=== PATIENT | female | born 1980 | race Caucasian/White ===

== ENCOUNTER 2021-06-11 10:55 | Inpatient (IN) | payer OTHER, SELFPAY ==
[2021-06-11] VITALS (23 sets, daily range): BP systolic 130–160; BP diastolic 77–114; PULSE 79–144; RESP 18–25; TEMP 36.7–37.4; O2SAT 97–100; BMI 25.9
--- NOTE | 2021-06-11 11:32 | DI.RAD.S_ITS ---
PROCEDURE: XR CHEST 1V INDICATIONS: suspected sepsis TECHNIQUE: One view of the chest was acquired. COMPARISON: None. FINDINGS: Surgical changes and devices: None. Lungs and pleura: Lungs are clear. No pleural effusions or pneumothorax. Mediastinum: Mediastinal contours appear normal. Heart size is normal. Bones and chest wall: No suspicious bony lesions. Mild dextroconvex scoliotic curvature is seen. Overlying soft tissues appear unremarkable. IMPRESSION: Clear lungs, without infiltrates. Dictated by: Adam Oh M.D. on 06/11/2021 at 10:58 Approved by: Adam Oh M.D. on 06/11/2021 at 10:59
[2021-06-11] MEDS: SODIUM CHLORIDE 0.9% 1,000 ML 1000 ML IV ×3 (11:40→19:25)
[2021-06-11] MEDS: ONDANSETRON 4 MG/2 ML INJ IV (11:40)
[2021-06-11 11:41] LABS: Add Manual Diff / Slide Review NO; Basophils Absolute Auto 0 /uL (0-100); Basophils Percent Auto 0.6 % (0-2); Eosinophils Absolute Auto 0 /uL (0-450); Eosinophils Percent Auto 0.1 % (2-4); Hemoglobin 12.4 g/dL (12.0-16.0); Lymphocytes Absolute Auto 200 /uL (1100-4500); Lymphocytes Percent Auto 3.1 % (25-40); Mean Corpuscular HGB Conc 34.5 % (30-36); Mean Corpuscular Hemoglobin 38.6 PG (26-34); Mean Corpuscular Volume 111.8 fL (80-100); Monocytes Absolute Auto 600 /uL (0-900); Monocytes Percent Auto 7.9 % (3-14); Neutrophils Absolute Auto 7000 /uL (1500-7000); Neutrophils Percent Auto 88.3 % (50-75); Platelet Count 124 X10^3/uL (150-400); Red Blood Cell Count 3.22 X10^6/uL (4.0-5.2); Red Cell Distribution Width 17.7 % (11.6-14.8); White Blood Cell Count 7.9 X10^3/uL (4.5-11.0)
[2021-06-11 11:46] LABS: Lactate (Lactic Acid) 2.8 mmol/L (0.7-2.1)
[2021-06-11 11:47] LABS: Alanine Aminotransferase 39 IU/L (<35); Albumin 4.7 g/dL (3.5-5.0); Albumin Globulin Ratio 1.2 (1.0-2.8); Alkaline Phosphatase 98 U/L (38-126); Aspartate Aminotransferase 220 IU/L (14-36); BUN Creatinine Ratio 11.8 (6-22); Blood Urea Nitrogen 8 mg/dL (7-17); Calcium 8.6 mg/dL (8.4-10.2); Carbon Dioxide 24 mmol/L (22-32); Chloride 95 mmol/L (98-107); Estimated Glomerular Filt Rate > 60.0 mL/min (>60); Globulin 3.9 g/dL (1.7-4.1); Glucose 164 mg/dL (70-100); HEMOLYSIS < 15 (0-50); Lipase 97 U/L (23-300); Potassium 3.1 mmol/L (3.4-5.1); Sodium 134 mmol/L (137-145); Total Protein 8.6 g/dL (6.3-8.2)
[2021-06-11 11:54] LABS: Anisocytosis 1+; Macrocytosis 2+
--- NOTE | 2021-06-11 11:57 | ED_ITS ---
HPI - Female Genitourinary General Chief complaint: Urogenital-Female Stated complaint: Possible kidney infection/sepsis- sent by [facility] Time Seen by Provider: 06/11/21 11:33 Source: patient Mode of arrival: Ambulatory History of Present Illness HPI Narrative: Patient is a 40-year-old female who has a history of alcohol abuse stating that she drinks about 4-5 drinks daily. Last drink was about 24 hours ago case she has not felt well. She says that she has had UTI symptoms painful frequent urination for about 2 weeks she has been using cranberry juice has not gone away. She was seen evaluated at would be urgent care for UTI but sent here for possible sepsis. She has had ongoing left flank pain. She describes as a dull ache it is not radiating. She has felt nauseous she has had fever body aches and chills for the last 1-2 days. He says she has an appointment with the liver doctor tomorrow it would be for gallstones. She denies any right upper quadrant pain. Review of Systems Review of Systems Narrative: GENERAL: + fever body aches HEENT: Denies sinus pain, ear pain, sore throat, difficulty swallowing, neck pain RESPIRATORY: Denies dyspnea, cough, wheezing, hemoptysis, sputum. CARDIOVASCULAR: Denies chest pain, palpitations, orthopnea, edema GASTROINTESTINAL: Denies nausea, vomiting, abdominal pain, diarrhea, co nstipation, melena. : + left flank pain, see hpi MUSCULOSKELETAL: Denies weakness, joint pain, or bony pain SKIN: No rash, no erythema, no pruritus NEUROLOGIC: Denies weakness, dizziness, headache, numbness, change in speech, confusion PSYCHIATRIC: No concerning psychosocial issues. 12 point review of systems is negative except for those stated above and HPI Patient History alcohol intake frequency: 3 or more drinks per day Substance Use Type: does not use Exam Initial Vital Signs Initial Vital Signs: Vital Signs Pulse Rate 117 H 06/11/21 11:06 Respiratory Rate 22 06/11/21 11:06 Blood Pressure 160/114 H 06/11/21 11:06 Pulse Oximetry 100 06/11/21 11:06 GENERAL: 40-year-old female appears to not feel well slightly clammy HEENT: Head atraumatic,EOMI, pupils reactive, face symmetric, moist mucous membranes CARDIOVASCULAR: Tachycardic regular RESPIRATORY: Breath sounds equal bilaterally, no wheezes rales or rhonchi. ABDOMEN: Soft, nontender. Normoactive bowel sounds all 4 quadrants. No guarding or rebound. No right upper quadrant : Mild left CVA tenderness EXTREMITIES: Normal range of motion, no clubbing or edema. Neurovascularly intact NEUROLOGICAL: Alert and oriented x4.Normal gait and speech. SKIN: Warm, dry, no laceration, no petechiae, no rashes or lesions. Course Orders Ordered: ED Orders 06/11/21 11:15 Complete Blood Count AUTO DIFF Stat Comprehensive Metabolic Panel Stat Lactate (Lactic Acid) Stat Lipase Stat Procalcitonin Stat 06/11/21 11:32 XR chest 1V Stat EKG-12 Lead Stat RT Consult Eval and Treat NOW 06/11/21 12:09 US abdomen limited Stat 06/11/21 12:43 Blood Culture Stat 06/11/21 12:53 Urinalysis and Microscopic Stat Urine Culture Stat 06/11/21 14:11 MRCP [MR abdomen wo con] Stat 06/11/21 17:27 CT kidney ureter bladder (KUB) Stat 06/11/21 19:12 COVID19 -Nasal swab/Pre-Proc Stat Sodium Chloride (Normal Saline 0.9%) 2,258.88 mls @ 752.96 mls/hr 30 ml/kg infuse over 3 hr (2258.88 ml) IV NOW ONE Stop: 06/11/21 20:26 Sodium Chloride (Normal Saline 0.9%) 1,000 mls @ 1,000 mls/hr IV BOLUS ONE Stop: 06/11/21 19:39 Discontinued Medications Acetaminophen (Acetaminophen 325 Mg Tablet) 650 mg PO NOW ONE Stop: 06/11/21 17:17 Last Admin: 06/11/21 17:49 Dose: 650 mg Documented by: OCTAVIO Sodium Chloride (Normal Saline 0.9%) 1,000 mls @ 1,000 mls/hr IV BOLUS ONE Stop: 06/11/21 12:30 Last Infusion: 06/11/21 13:34 Dose: 0 mls/hr Documented by: Admin: 06/11/21 11:40 Dose: 1,000 mls/hr Documented by: ADITI Ceftriaxone Sodium 1,000 mg/ (Sodium Chloride) 100 mls @ 200 mls/hr IV NOW ONE Stop: 06/11/21 12:10 Last Infusion: 06/11/21 13:34 Dose: 0 mls/hr Documented by: Admin: 06/11/21 12:36 Dose: 200 mls/hr Documented by: OCTAVIO Sodium Chloride (Normal Saline 0.9%) 1,000 mls @ 1,000 mls/hr IV BOLUS ONE Stop: 06/11/21 13:50 Last Admin: 06/11/21 17:55 Dose: 1,000 mls/hr Documented by: OCTAVIO Ketorolac Tromethamine (Ketorolac 30 Mg/Ml Vial) 15 mg IV NOW ONE Stop: 06/11/21 12:10 Last Admin: 06/11/21 12:38 Dose: 15 mg Documented by: OCTAVIO Lorazepam (Lorazepam 2 Mg/Ml Inj) 1 mg IV NOW ONE Stop: 06/11/21 12:10 Last Admin: 06/11/21 12:38 Dose: 1 mg Documented by: OCTAVIO Lorazepam (Lorazepam 2 Mg/Ml Inj) 2 mg IV NOW ONE Stop: 06/11/21 14:16 Last Admin: 06/11/21 14:44 Dose: 2 mg Documented by: OCTAVIO Ondansetron HCl (Ondansetron 4 Mg/2 Ml Inj) 4 mg IV NOW ONE Stop: 06/11/21 11:32 Last Admin: 06/11/21 11:40 Dose: 4 mg Documented by: ADITI Phenobarbital (Phenobarbital 65 Mg/Ml Vial) 130 mg IV NOW ONE Stop: 06/11/21 17:42 Last Admin: 06/11/21 17:48 Dose: 130 mg Documented by: OCTAVIO Vital Signs Vital signs: Vital Signs - 8 hr 06/11/21 11:30 06/11/21 11:42 06/11/21 11:43 Pulse Rate 106 H 109 H Respiratory Rate 18 20 Blood Pressure 145/97 H Pulse Oximetry 99 99 06/11/21 12:04 06/11/21 12:22 06/11/21 12:30 Pulse Rate 108 H 106 H 114 H Respiratory Rate 18 18 Blood Pressure 151/108 H 144/101 H Pulse Oximetry 99 99 06/11/21 13:00 06/11/21 13:30 06/11/21 14:00 Pulse Rate 101 H 101 H 104 H Respiratory Rate Blood Pressure 137/96 H 135/97 H Pulse Oximetry 97 99 100 06/11/21 14:29 06/11/21 14:30 06/11/21 14:31 Pulse Rate 108 H 105 H 103 H Respiratory Rate Blood Pressure 140/96 H 135/99 H Pulse Oximetry 100 100 100 06/11/21 17:12 06/11/21 17:30 06/11/21 18:02 Pulse Rate 144 H 127 H 137 H Respiratory Rate 25 H Blood Pressure Pulse Oximetry 100 99 98 06/11/21 18:30 06/11/21 19:00 Pulse Rate 120 H 121 H Respiratory Rate 22 25 H Blood Pressure 130/90 Pulse Oximetry 99 98 MDM - Female Genitourinary Lab Data Result diagrams: 06/11/21 11:15 06/11/21 11:15 Labs: Lab Results 06/11/21 06/11/21 06/11/21 Range/Units 11:15 11:15 11:15 WBC 7.9 (4.5-11.0) X10^3/uL RBC 3.22 L (4.0-5.2) X10^6/uL Hgb 12.4 (12.0-16.0) g/dL Hct 36.0 (36-46) % MCV 111.8 H (80-100) fL MCH 38.6 H (26-34) PG MCHC 34.5 (30-36) % RDW 17.7 H (11.6-14.8) % Plt Count 124 L (150-400) X10^3/uL Neut % (Auto) 88.3 H (50-75) % Lymph % (Auto) 3.1 L (25-40) % [facility] % (Auto) 7.9 (3-14) % Eos % (Auto) 0.1 L (2-4) % Baso % (Auto) 0.6 (0-2) % Neut # (Auto) 7000 (2440-7419) /uL Lymph # (Auto) 200 L (1181-8296) /uL [facility] # (Auto) 600 (0-900) /uL Eos # (Auto) 0 (0-450) /uL Baso # (Auto) 0 (0-100) /uL RBC Morphology Not Reportable Anisocytosis 1+ H Macrocytosis 2+ H Sodium 134 L (137-145) mmol/L Potassium 3.1 L (3.4-5.1) mmol/L Chloride 95 L (98-107) mmol/L Carbon Dioxide 24 (22-32) mmol/L BUN 8 (7-17) mg/dL Creatinine 0.68 (0.52-1.04) mg/dL Estimated GFR > 60.0 (>60) mL/min BUN/Creatinine Ratio 11.8 (6-22) Glucose 164 H (70-100) mg/dL Lactate 2.8 H (0.7-2.1) mmol/L Calcium 8.6 (8.4-10.2) mg/dL Total Bilirubin 2.0 H (0.2-1.3) mg/dL AST 220 H (14-36) IU/L ALT 39 H (<35) IU/L Alkaline Phosphatase 98 (38-126) U/L Total Protein 8.6 H (6.3-8.2) g/dL Albumin 4.7 (3.5-5.0) g/dL Globulin 3.9 (1.7-4.1) g/dL Albumin/Globulin Ratio 1.2 (1.0-2.8) Lipase 97 (23-300) U/L Procalcitonin 9.00 H (<0.5) ng/mL Urine Color Urine Appearance Urine pH (4.5-8.0) Ur Specific [place] (1.000-1.035) Urine Protein (Negative) Urine Glucose (UA) (Negative) g/dL Urine Ketones (NEGATIVE) Urine Occult Blood (Negative) Urine Nitrate (Negative) Urine Bilirubin (NEGATIVE) Urine Urobilinogen (0.2) E.U./dL Ur Leukocyte Esterase (NEGATIVE) Urine RBC (0-5/HPF) Urine WBC (0-5/HPF) Ur Squamous Epith Cells (0-5/HPF) Urine Bacteria (None) Ur Culture Indicated? 06/11/21 06/11/21 Range/Units 12:53 13:47 WBC (4.5-11.0) X10^3/uL RBC (4.0-5.2) X10^6/uL Hgb (12.0-16.0) g/dL Hct (36-46) % MCV (80-100) fL MCH (26-34) PG MCHC (30-36) % RDW (11.6-14.8) % Plt Count (150-400) X10^3/uL Neut % (Auto) (50-75) % Lymph % (Auto) (25-40) % [facility] % (Auto) (3-14) % Eos % (Auto) (2-4) % Baso % (Auto) (0-2) % Neut # (Auto) (9023-2647) /uL Lymph # (Auto) (8770-0491) /uL [facility] # (Auto) (0-900) /uL Eos # (Auto) (0-450) /uL Baso # (Auto) (0-100) /uL RBC Morphology Anisocytosis Macrocytosis Sodium (137-145) mmol/L Potassium (3.4-5.1) mmol/L Chloride (98-107) mmol/L Carbon Dioxide (22-32) mmol/L BUN (7-17) mg/dL Creatinine (0.52-1.04) mg/dL Estimated GFR (>60) mL/min BUN/Creatinine Ratio (6-22) Glucose (70-100) mg/dL Lactate 1.3 (0.7-2.1) mmol/L Calcium (8.4-10.2) mg/dL Total Bilirubin (0.2-1.3) mg/dL AST (14-36) IU/L ALT (<35) IU/L Alkaline Phosphatase (38-126) U/L Total Protein (6.3-8.2) g/dL Albumin (3.5-5.0) g/dL Globulin (1.7-4.1) g/dL Albumin/Globulin Ratio (1.0-2.8) Lipase (23-300) U/L Procalcitonin (<0.5) ng/mL Urine Color Yellow Urine Appearance Sl cloudy Urine pH 6.5 (4.5-8.0) Ur Specific [place] <=1.005 (1.000-1.035) Urine Protein Trace H (Negative) Urine Glucose (UA) Negative (Negative) g/dL Urine Ketones Trace H (NEGATIVE) Urine Occult Blood 2+ H (Negative) Urine Nitrate Negative (Negative) Urine Bilirubin Negative (NEGATIVE) Urine Urobilinogen 0.2 (0.2) E.U./dL Ur Leukocyte Esterase 3+ H (NEGATIVE) Urine RBC 1-5/hpf (0-5/HPF) Urine WBC 10-30/hpf H (0-5/HPF) Ur Squamous Epith Cells 0-1 /hpf (0-5/HPF) Urine Bacteria Many (>30) H (None) Ur Culture Indicated? Specimen cultured Point of Care Testing Test Results Negative Urine Dip Bedside Urine Glucose Negative Bedside Urine Bilirubin - Negative Bedside Urine Ketone +/- 5 Urine Specific [place] 1.010 Bedside Urine Occult Blood +/- Bedside Urine pH 6 Bedside Urine Protein + 30 Bedside Urine Urobilinogen - Negative Bedside Urine Nitrite - Negative Bedside Urine Leukocytes +++ [address] scan - abdomen/pelvis: Radiologist's Impression: PROCEDURE:? CT KIDNEY URETER BLADDER (KUB) ? INDICATIONS:? left flank pain ? TECHNIQUE:? Axial sections were acquired from the lung bases to the pubic symphysis.? Coronal and sagittal reformats were performed.? For radiation dose reduction, the following was used: ?automated exposure control, adjustment of mA and/or kV according to patient size.? ? COMPARISON:? [facility], MR, MR ABDOMEN WO CON, 06/11/2021, 15:23. ? FINDINGS:? Image quality:? Excellent.? ? Lung bases:? Unremarkable.? ? Heart:? No significant findings. ? URINARY: Kidneys and ureters:? Left perinephric fat stranding is seen, as demonstrated on MRI from earlier the same day.? No left renal or ureteral calculus is seen.? Phleboliths are noted in the pelvis posterior medial to the ureter.? There is diffuse left periureteral fat stranding.? No significant hydronephrosis is seen.? Stable left renal cyst.? R ight kidney is normal in size without perinephric fat stranding or hydronephrosis. ? Bladder:? Diffuse bladder wall thickening is seen.? No bladder calculus. ? ABDOMEN: Liver:? The liver is diffusely hypoattenuating, consistent with fatty infiltration.? A 1.2 cm fat density lesion is seen in the posterior right hepatic lobe corresponding to the abnormality seen on MRI. Gallbladder:? Unremarkable. Biliary ducts:? Unremarkable.? ? Pancreas:? Unremarkable.? ? Spleen:? Unremarkable.? ? Adrenal Glands:? Unremarkable.? ? ? Stomach and Bowel:? Stomach, small bowel loops, and colon are unremarkable.? Peritoneum:? No abnormal intraperitoneal fluid.? No free air.? ? Ventral Wall: ? No hernia.? Abdominal Nodes:? No enlarged retroperitoneal or mesenteric lymph nodes.? Vessels:? Aorta and inferior vena cava are normal in size.? ? PELVIS: Pelvic Organs:? Uterus is normal in size.? The ovaries are symmetric. Pelvic Nodes: Unremarkable. Miscellaneous: No inguinal hernias are seen. ? ? ? Bones:? Mild degenerative changes are seen in the spine, most prominent at the T12-L1 level. ? IMPRESSION:? 1. Left perinephric and periureteral fat stranding and mild diffuse bladder wall thickening are suspicious for cystitis and pyelonephritis.? Less likely, findings could be secondary to a recently passed calculus.? No obstructing stone is seen.? The right kidney appears normal.? Recommend correlation with urinalysis. 2. Diffuse hepatic steatosis. 3. Small indeterminate lesion in the posterior right liver.? Again consider follow-up contrast-enhanced liver protocol MRI for further characterization on a n onemergent basis. ? ? ? Dictated by: Arslan Linton M.D. on 06/11/2021 at 18:09 ? ? Chest x-ray: Radiologist's Impression: PROCEDURE:? XR CHEST 1V ? INDICATIONS:? suspected sepsis ? TECHNIQUE:? One view of the chest was acquired.? ? COMPARISON:? None. ? FINDINGS:? ? Surgical changes and devices:? None.? ? Lungs and pleura:? Lungs are clear.? No pleural effusions or pneumothorax.? ? Mediastinum:? Mediastinal contours appear normal.? Heart size is normal.? ? Bones and chest wall:? No suspicious bony lesions.? Mild dextroconvex scoliotic curvature is seen. ? Overlying soft tissues appear unremarkable.? IMPRESSION:? Clear lungs, without infiltrates. ? ? Dictated by: Adam Oh M.D. on 06/11/2021 at 10:58 ? ? Approved by: Adam Oh M.D. on 06/11/2021 at 10:59 ? US - abdomen: Radiologist's Impression: PROCEDURE:? US ABDOMEN LIMITED ? INDICATIONS:? ELEVATED BILI AND LIVER ENZYMES ? TECHNIQUE:? Real-time scanning was performed of the abdominal and retroperitoneal organs, with image documentation.? ? COMPARISON:? None. ? FINDINGS:? ? Liver:? There is mild hepatomegaly.? Increased liver parenchymal echotexture is seen suggestive of hepatic steatosis.? No discrete hepatic lesion is noted. ? Gallbladder:? Possible small stones/sludge material in dependent portion of gallbladder lumen are seen.? No gallbladder wall thickening or pericholecystic fluid.? No sonographic Spann's sign ? Biliary ducts:? Intrahepatic bile ducts are non-dilated.? Extrahepatic bile duct caliber measures 5.1 mm.? Normal is 6-7 mm or less in diameter, or 10 mm or less post-cholecystectomy.? ? Pancreas:? Pancreas is not visualized due to overlying bowel gas and poor penetration through the liver.? ? Miscellaneous:? No free abdominal fluid.? ? ? IMPRESSION:? 1. Possible tiny stones/sludge material in gallbladder lumen.? No sonographic evidence of acute cholecystitis. 2. No biliary ductal dilatation. 3.? Hepatic steatosis and mild splenomegaly, no discrete hepatic lesion. ? ? ? Dictated by: Titus Lynch M.D. on 06/11/2021 at 12:54 ? ? Approved by: Titus Lynch M.D. on 06/11/2021 at 12:56 ? MRCP: Radiologist's Impression: PROCEDURE:? MR ABDOMEN WO CON ? INDICATIONS:? elevated bili with gallstones ? TECHNIQUE:? Coronal HASTE through the abdomen, axial 2-D FLASH in- and [id number], and breath-hold T2 FSE with fat saturation through the biliary system and pancreas.? Oblique coronal and axial thin-slice HASTE, radial thick-slab HASTE centered on the extrahepatic bile ducts.? ? ? Intravenous secretin:? Not requested.? ? COMPARISON:? [facility], US ABDOMEN LIMITED, 06/11/2021, 12:19. ? FINDINGS:? Image quality:? Excellent.? ? Pancreas and biliary system:? Intra- and extra-hepatic biliary ducts are non dilated.? Pancreas is normal in morphology, without adjacent soft tissue edema.? Pancreatic duct is normal in caliber, without developmental anomalies.? Gallbladder has normal wall thickness and no identification of stones. .? ? Other solid organs:? Liver is normal in size.? Severe diffuse hepatic steatosis.? There is a posterior segment right lobe liver lesion measuring 1 cm in diameter which is indeterminate.? Spleen is normal in size.? No adrenal nodules.? Both kidneys are normal in size, without hydronephrosis.? However, there is extensive left perinephric stranding and perinephric fluid present. ? Nodes and vessels:? No retroperitoneal or mesenteric adenopathy by size criteria.? Aorta and inferior vena cava are normal in size.? ? Bowel and peritoneum:? Unenhanced bowel loops are normal in caliber.? No free fluid.? ? Lung bases:? No basal pleural effusions.? Heart size is normal.? ? Bones and soft tissues:? No ventral hernias.? Bone marrow is of normal overall signal.? ? IMPRESSION:? ? 1. No gallstones are identified. ? 2. Nondilated biliary tree without stones.? ? 3. Extensive left perinephric stranding and perinephric fluid.? Consider possible ureteral stone with calyceal rupture.? This is not definite. ? 4. Diffuse hepatic steatosis. ? 5. Indeterminate 1 cm posterior segment right lobe liver lesion.? ? Comment:? Consider CT KUB to evaluate for possible left ureteral stone.? Recommend multiphase liver MRI to evaluate this 1 cm indeterminate right lobe liver lesion.? ? Dictated by: Puneet Almendarez M.D. on 06/11/2021 at 16:41 ? ? Approved by: Puneet Almendarez M.D. on 06/11/2021 at 16:50 ? ECG Data Interpretation: Normal sinus rhythm rate [address] changes T-wave noted in lead 3 only MDM Narrative Medical decision making narrative: Patient complaining of left flank pain and UTI symptoms ongoing for 2 weeks. Concern for pyelonephritis. She is mildly tachycardic initially without fever. Blood work actually does not show any leukocytosis she does have an elevated procalcitonin of 9.0 certainly concerning for bacterial infection with a normal lactic acid. Blood work also revealed elevated bilirubin and LFTs. She does not have any right upper quadrant pain but says that she has known gallstones and actually supposed to see a doctor about that coming up shortly. She is also an alcoholic. Questionable if bilirubin is due to sepsis,, mid bile duct stone or alcoholism. Ultrasound did show she has some small gallstones which led to an MRCP which shows a clear CBD. I suspect that elevated bilirubin is due to a combination of alcoholism and sepsis. CT confirmed pyelonephritis and possibly recently passed kidney stone. Patient returned from MRI she was found to have a heart rate in the 140 she is slightly clammy found have a temperature of 100.0? she says she does not feel quite right. She has been given Ativan to help with claustrophobia and mild withdrawal like symptoms as well. She is given a dose of phenobarbital she has already been given a dose of Rocephin. With increased tachycardia and fever patient will need to stay in the hospital. Dr. Escoto updated patient's symptoms test results and happily a accepts. Discharge Plan Departure Patient Disposition: Admitted As Inpatient Clinical Impression: Sepsis, Pyelonephritis, Alcohol withdrawal Admit Date/Time: 06/11/21 19:06 Admit Provider: Chrissie Fontenot
--- NOTE | 2021-06-11 12:09 | DI.US.S_ITS ---
PROCEDURE: US ABDOMEN LIMITED INDICATIONS: ELEVATED BILI AND LIVER ENZYMES TECHNIQUE: Real-time scanning was performed of the abdominal and retroperitoneal organs, with image documentation. COMPARISON: None. FINDINGS: Liver: There is mild hepatomegaly. Increased liver parenchymal echotexture is seen suggestive of hepatic steatosis. No discrete hepatic lesion is noted. Gallbladder: Possible small stones/sludge material in dependent portion of gallbladder lumen are seen. No gallbladder wall thickening or pericholecystic fluid. No sonographic Spann's sign Biliary ducts: Intrahepatic bile ducts are non-dilated. Extrahepatic bile duct caliber measures 5.1 mm. Normal is 6-7 mm or less in diameter, or 10 mm or less post-cholecystectomy. Pancreas: Pancreas is not visualized due to overlying bowel gas and poor penetration through the liver. Miscellaneous: No free abdominal fluid. IMPRESSION: 1. Possible tiny stones/sludge material in gallbladder lumen. No sonographic evidence of acute cholecystitis. 2. No biliary ductal dilatation. 3. Hepatic steatosis and mild splenomegaly, no discrete hepatic lesion. Dictated by: Titus Lynch M.D. on 06/11/2021 at 12:54 Approved by: Titus Lynch M.D. on 06/11/2021 at 12:56
[2021-06-11] MEDS: cefTRIAXone 1,000 MG in SODIUM CHLORIDE 0.9% 100 ML 200 ML IV (12:36)
[2021-06-11] MEDS: LORazepam 2 MG/ML INJ 1 MG IV (12:38)
[2021-06-11] MEDS: KETOROLAC 30 MG/ML VIAL 15 MG IV (12:38)
[2021-06-11 12:59] LABS: Appearance Urine UA SL CLOUDY; Bilirubin Urine UA NEGATIVE (NEGATIVE); Color Urine UA YELLOW; Glucose Urine UA NEGATIVE (Negative); Ketones Urine UA TRACE (NEGATIVE); Leukocyte Esterase Urine UA 3+ (NEGATIVE); Nitrite Urine UA NEGATIVE (Negative); Occult Blood Urine UA 2+ (Negative); Protein Urine UA TRACE (Negative); Specific Gravity Urine UA <=1.005 (1.000-1.035); Urobilinogen Urine UA 0.2 E.U./dL (0.2)
[2021-06-11 13:01] LABS: pH Urine UA 6.5 (4.5-8.0)
[2021-06-11 13:10] LABS: Bacteria Urine Many (>30); Culture Indicated Urine Specimen Cultured; RBC Urine 1-5/HPF (0-5/HPF); Squamous Epithelial Cell Urine 0-1 /HPF (0-5/HPF); WBC Urine 10-30/HPF (0-5/HPF)
[2021-06-11 13:37] LABS: Reflexed Lactate in 2 Hours Y
[2021-06-11 14:10] LABS: Lactate 2HR (Lactic Acid Rflx) 1.3 mmol/L (0.7-2.1)
--- NOTE | 2021-06-11 14:11 | DI.MRI.S_ITS ---
PROCEDURE: MR ABDOMEN WO CON INDICATIONS: elevated bili with gallstones TECHNIQUE: Coronal HASTE through the abdomen, axial 2-D FLASH in- and [id number], and breath-hold T2 FSE with fat saturation through the biliary system and pancreas. Oblique coronal and axial thin-slice HASTE, radial thick-slab HASTE centered on the extrahepatic bile ducts. Intravenous secretin: Not requested. COMPARISON: [facility], , ABDOMEN LIMITED, 06/11/2021, 12:19. FINDINGS: Image quality: Excellent. Pancreas and biliary system: Intra- and extra-hepatic biliary ducts are non dilated. Pancreas is normal in morphology, without adjacent soft tissue edema. Pancreatic duct is normal in caliber, without developmental anomalies. Gallbladder has normal wall thickness and no identification of stones. . Other solid organs: Liver is normal in size. Severe diffuse hepatic steatosis. There is a posterior segment right lobe liver lesion measuring 1 cm in diameter which is indeterminate. Spleen is normal in size. No adrenal nodules. Both kidneys are normal in size, without hydronephrosis. However, there is extensive left perinephric stranding and perinephric fluid present. Nodes and vessels: No retroperitoneal or mesenteric adenopathy by size criteria. Aorta and inferior vena cava are normal in size. Bowel and peritoneum: Unenhanced bowel loops are normal in caliber. No free fluid. Lung bases: No basal pleural effusions. Heart size is normal. Bones and soft tissues: No ventral hernias. Bone marrow is of normal overall signal. IMPRESSION: 1. No gallstones are identified. 2. Nondilated biliary tree without stones. 3. Extensive left perinephric stranding and perinephric fluid. Consider possible ureteral stone with calyceal rupture. This is not definite. 4. Diffuse hepatic steatosis. 5. Indeterminate 1 cm posterior segment right lobe liver lesion. Comment: Consider CT KUB to evaluate for possible left ureteral stone. Recommend multiphase liver MRI to evaluate this 1 cm indeterminate right lobe liver lesion. Dictated by: Puneet Almendarez M.D. on 06/11/2021 at 16:41 Approved by: Puneet Almendarez M.D. on 06/11/2021 at 16:50
[2021-06-11] MEDS: LORazepam 2 MG/ML INJ IV (14:44)
--- NOTE | 2021-06-11 17:27 | DI.CT.S_ITS ---
PROCEDURE: CT KIDNEY URETER BLADDER (KUB) INDICATIONS: left flank pain TECHNIQUE: Axial sections were acquired from the lung bases to the pubic symphysis. Coronal and sagittal reformats were performed. For radiation dose reduction, the following was used: automated exposure control, adjustment of mA and/or kV according to patient size. COMPARISON: [facility], MR, MR ABDOMEN WO CON, 06/11/2021, 15:23. FINDINGS: Image quality: Excellent. Lung bases: Unremarkable. Heart: No significant findings. URINARY: Kidneys and ureters: Left perinephric fat stranding is seen, as demonstrated on MRI from earlier the same day. No left renal or ureteral calculus is seen. Phleboliths are noted in the pelvis posterior medial to the ureter. There is diffuse left periureteral fat stranding. No significant hydronephrosis is seen. Stable left renal cyst. Right kidney is normal in size without perinephric fat stranding or hydronephrosis. Bladder: Diffuse bladder wall thickening is seen. No bladder calculus. ABDOMEN: Liver: The liver is diffusely hypoattenuating, consistent with fatty infiltration. A 1.2 cm fat density lesion is seen in the posterior right hepatic lobe corresponding to the abnormality seen on MRI. Gallbladder: Unremarkable. Biliary ducts: Unremarkable. Pancreas: Unremarkable. Spleen: Unremarkable. Adrenal Glands: Unremarkable. Stomach and Bowel: Stomach, small bowel loops, and colon are unremarkable. Peritoneum: No abnormal intraperitoneal fluid. No free air. Ventral Wall: No hernia. Abdominal Nodes: No enlarged retroperitoneal or mesenteric lymph nodes. Vessels: Aorta and inferior vena cava are normal in size. PELVIS: Pelvic Organs: Uterus is normal in size. The ovaries are symmetric. Pelvic Nodes: Unremarkable. Miscellaneous: No inguinal hernias are seen. Bones: Mild degenerative changes are seen in the spine, most prominent at the T12-L1 level. IMPRESSION: 1. Left perinephric and periureteral fat stranding and mild diffuse bladder wall thickening are suspicious for cystitis and pyelonephritis. Less likely, findings could be secondary to a recently passed calculus. No obstructing stone is seen. The right kidney appears normal. Recommend correlation with urinalysis. 2. Diffuse hepatic steatosis. 3. Small indeterminate lesion in the posterior right liver. Again consider follow-up contrast-enhanced liver protocol MRI for further characterization on a nonemergent basis. Dictated by: Arslan Linton M.D. on 06/11/2021 at 18:09 Approved by: Arslan Linton M.D. on 06/11/2021 at 18:17
[2021-06-11] MEDS: PHENobarbital 65 MG/ML VIAL 130 MG IV (17:48)
[2021-06-11] MEDS: ACETAMINOPHEN 325 MG TABLET 650 MG PO (17:49)
[2021-06-11 19:41] LABS: COVID19 -Nasal RAPID Negative (Negative)
[2021-06-11] MEDS: SODIUM CHLORIDE 0.9% 752.96 ML IV (20:35)
--- NOTE | 2021-06-11 20:49 | PM.HP.1 ---
History of Present Illness History of Present Illness Date Patient Seen: 06/11/21 Time Patient Seen: 20:50 Chief complaint: Possible kidney infection/sepsis- sent by [facility] Narrative: This is a 40-year-old female with daily alcohol use who is admitted for acute sepsis with organ failure related to left-sided pyelonephritis. She is a heavy alcohol user, drinking 4-5 glasses of vodka per day. She is experiencing alcohol withdrawal. She describes 2 weeks of urinary discomfort that she attempted to treat with cranberry juice, which usually works for her urinary tract infections. She developed a fever of 99.5 yesterday and then 100.6 when she presented to her doctor's office this morning. She is now having left flank pain and tachycardia up to 119 and her liver enzymes are elevated. She has gallstones but she has no right upper quadrant pain or tenderness. On CT KUB she has evidence of left-sided pyelonephritis. Her MRCP is negative for pancreatitis. Her potassium is low 3.1 and her glucose is high at 164. The bilirubin is 2.0 with an AST of 220 and ALT of 39. In her urine there are 10-[address] scan of the abdomen and MRCP both show a 1 cm posterior segment right liver lobe lesion for which a multiphase liver MRI is recommended. She has been requiring phenobarbital and lorazepam for her alcohol withdrawal. She is accompanied by her . She lives on [facility]. Patient History Medical History (Updated 06/11/21 @ 22:35 by Chrissie Fontenot MD) Alcoholism UTI (urinary tract infection) Surgical History (Updated 06/11/21 @ 22:35 by Chrissie Fontenot MD) History of tonsillectomy Family & Social History Family History (Updated 06/11/21 @ 22:37 by Chrissie Fontenot MD) Father Alcohol abuse Hypertension Mother Alcohol abuse Hypertension Ulcerative colitis Safety & Behavioral: Feels Safe in Current Yes Environment Been Physically Hurt or No Threatened By a Person Tobacco & Substance use: Smoking Status Never smoker alcohol intake frequency 3 or more drinks per day Substance Use Type does not use Meds Home Medications and Allergies Home Medications Medication Instructions Recorded Confirmed Type amlodipine 10 mg tablet mg 06/11/21 History lisinopril 20 mg tablet mg 06/11/21 History Review of Systems Review of Systems Narrative: Positive for fevers, chills, sweats, dysuria, left flank pain Negative for abdominal pain, vomiting, chest pain, coughing, seizures, headaches, bleeding, sore throat and new allergies Exam Vital Signs (past 8 hours): - 06/11/21 13:00 06/11/21 13:30 06/11/21 14:00 Temperature Pulse Rate 101 H 101 H 104 H Respiratory Rate Blood Pressure 137/96 H 135/97 H Pulse Oximetry 97 99 100 06/11/21 14:29 06/11/21 14:30 06/11/21 14:31 Temperature Pulse Rate 108 H 105 H 103 H Respiratory Rate Blood Pressure 140/96 H 135/99 H Pulse Oximetry 100 100 100 06/11/21 17:12 06/11/21 17:30 06/11/21 18:02 Temperature Pulse Rate 144 H 127 H 137 H Respiratory Rate 25 H Blood Pressure Pulse Oximetry 100 99 98 06/11/21 18:30 06/11/21 19:00 06/11/21 19:15 Temperature Pulse Rate 120 H 121 H 120 H Respiratory Rate 22 25 H 22 Blood Pressure 130/90 130/90 Pulse Oximetry 99 98 99 06/11/21 19:21 Temperature 98.7 F Pulse Rate Respiratory Rate Blood Pressure Pulse Oximetry Oxygen Delivery Method Room Air Narrative Exam Narrative: She is alert and oriented x3. She is in moderate alcohol withdrawal distress with a flushed and worried look on her face. Pupils are equally round reactive to light and accommodation Extraocular muscles are intact Sclerae are pink and nonicteric Throat looks normal No lymph nodes are felt head, neck, supraclavicular area JVD is less than 6 cm There is no thyromegaly No carotid bruits are heard Heart is regular rate and rhythm without murmur Lungs are clear to auscultation bilaterally Abdomen is soft, bowel sounds positive, nontender, no organomegaly Extremities have no ankle edema She has mild left flank pain with deep inspiration. Skin has no rash or jaundice Neurological exam: Cranial nerves 2-12 test intact Motor function is 5/5 throughout There is mild tremor and mild asterixis present. Objective Labs Result Diagrams: 06/11/21 11:15 06/11/21 11:15 Labs: Laboratory Results - last 24 hr 06/11/21 06/11/21 06/11/21 11:15 11:15 11:15 WBC 7.9 RBC 3.22 L Hgb 12.4 Hct 36.0 MCV 111.8 H MCH 38.6 H MCHC 34.5 RDW 17.7 H Plt Count 124 L Neut % (Auto) 88.3 H Lymph % (Auto) 3.1 L Graves % (Auto) 7.9 Eos % (Auto) 0.1 L Baso % (Auto) 0.6 Neut # (Auto) 7000 Lymph # (Auto) 200 L Graves # (Auto) 600 Eos # (Auto) 0 Baso # (Auto) 0 RBC Morphology Not Reportable Anisocytosis 1+ H Macrocytosis 2+ H Sodium 134 L Potassium 3.1 L Chloride 95 L Carbon Dioxide 24 BUN 8 Creatinine 0.68 Estimated GFR > 60.0 BUN/Creatinine Ratio 11.8 Glucose 164 H Lactate 2.8 H Calcium 8.6 Total Bilirubin 2.0 H AST 220 H ALT 39 H Alkaline Phosphatase 98 Total Protein 8.6 H Albumin 4.7 Globulin 3.9 Albumin/Globulin Ratio 1.2 Lipase 97 Procalcitonin 9.00 H Urine Color Urine Appearance Urine pH Ur Specific Nesbit Urine Protein Urine Glucose (UA) Urine Ketones Urine Occult Blood Urine Nitrate Urine Bilirubin Urine Urobilinogen Ur Leukocyte Esterase Urine RBC Urine WBC Ur Squamous Epith Cells Urine Bacteria Ur Culture Indicated? SARS-CoV-2 (PCR) 06/11/21 06/11/21 06/11/21 12:53 13:47 19:12 WBC RBC Hgb Hct MCV MCH MCHC RDW Plt Count Neut % (Auto) Lymph % (Auto) Graves % (Auto) Eos % (Auto) Baso % (Auto) Neut # (Auto) Lymph # (Auto) Graves # (Auto) Eos # (Auto) Baso # (Auto) RBC Morphology Anisocytosis Macrocytosis Sodium Potassium Chloride Carbon Dioxide BUN Creatinine Estimated GFR BUN/Creatinine Ratio Glucose Lactate 1.3 Calcium Total Bilirubin AST ALT Alkaline Phosphatase Total Protein Albumin Globulin Albumin/Globulin Ratio Lipase Procalcitonin Urine Color Yellow Urine Appearance Sl cloudy Urine pH 6.5 Ur Specific Nesbit <=1.005 Urine Protein Trace H Urine Glucose (UA) Negative Urine Ketones Trace H Urine Occult Blood 2+ H Urine Nitrate Negative Urine Bilirubin Negative Urine Urobilinogen 0.2 Ur Leukocyte Esterase 3+ H Urine RBC 1-5/hpf Urine WBC 10-30/hpf H Ur Squamous Epith Cells 0-1 /hpf Urine Bacteria Many (>30) H Ur Culture Indicated? Specimen cultured SARS-CoV-2 (PCR) Negative Assessment & Plan Assessment & Plan narrative: This is a 40-year-old female with daily alcohol use who is admitted for acute sepsis with organ failure related to left-sided pyelonephritis. She is a heavy alcohol user, drinking 4-5 glasses of vodka per day. She is experiencing alcohol withdrawal. She describes 2 weeks of urinary discomfort that she attempted to treat with cranberry juice, which usually works for her urinary tract infections. She developed a fever of 99.5 yesterday and then 100.6 when she presented to her doctor's office this morning. Left pyelonephritis, present on admission. Active. -the patient appears to be experiencing sepsis without septic shock currently. -a urine culture is pending with 10-30 wbc's on UA -Left perinephric and periureteral fat stranding and mild diffuse bladder wall thickening are suspicious for cystitis and pyelonephritis. Less likely, findings could be secondary to a recently passed calculus. No obstructing stone is seen. -continue ceftriaxone 1 g IV Q 24 hours until sensitivities and identification are clear. -transition to oral antibiotics once definitive treatment plan is in place. Sepsis with acute organ dysfunction, present on admission. Active. -liver enzymes are elevated, probably as a result of alcohol abuse but relationship to pyelonephritis/sepsis is also likely. -no signs of acute shock on admission. -lactate 2.8 with procalcitonin of 9.0 and white blood count of 7 on admission. -heart rate of 119 on admission Alcohol withdrawal syndrome, present on admission. Active. -patient describes drinking 4-5 small glasses of vodka daily -alcohol withdrawal mild DTs appear present on admission. -continue lorazepam routinely and as needed -continue multivitamin, thiamine and magnesium. Transaminase elevation, present on admission. Active. -admission AST 220 with ALT 39 and bilirubin 2.0 -likely alcohol use related -no cirrhosis on imaging so far -posterior segment liver lesion noted on imaging with multiphase liver MRI recommended Hyperglycemia, present on admission. Active. -glucose of 164 on admission, check A1c and follow blood sugars b.i.d. Hypokalemia, present on admission. Active. -potassium 3.1 on admission, treat with 40 mEq of IV potassium chloride and follow -etiology likely related to malnourishment of daily alcohol abuse Continue Lovenox for DVT prevention Her , Khurram Sepulveda, is her backup decision maker. Time Spent With Patient Critical Care time: I spent a total of [] minutes of critical care time on this patient's care today; this time is exclusive of procedural time.
[2021-06-11] MEDS: POTASSIUM CHLORIDE IN WATER 10 MEQ/100 ML PIGGYBACK 100 MEQ IV ×3 (21:41→23:50)
[2021-06-11] MEDS: DEXTROSE 5%-0.9% NS 1,000 ML 100 ML IV (21:41)
[2021-06-11] MEDS: LORazepam 1 MG TABLET 2 MG PO (21:48)
[2021-06-12] VITALS (14 sets, daily range): BP systolic 133–173; BP diastolic 84–108; PULSE 102–136; RESP 14–20; TEMP 37.1–39.5; O2SAT 99–100
[2021-06-12] MEDS: POTASSIUM CHLORIDE IN WATER 10 MEQ/100 ML PIGGYBACK 100 MEQ IV (00:44)
[2021-06-12] MEDS: cloNIDine 0.1 MG TABLET PO (00:44)
[2021-06-12 02:32] LABS: Acinetobacter baumannii Not Detected (Not Detect); Enterobacteriaceae species Detected (Not Detect); Enterococcus species Not Detected (Not Detect); KPC (carbapenem-resist gene) Not Detected (Not Detect); Listeria monocytogenes Not Detected (Not Detect); Staphylococcus species Not Detected (Not Detect); Streptococcus agalactiae (Gr B Not Detected (Not Detect); Streptococcus pneumonia Not Detected (Not Detect); Streptococcus pyogenes (Gr A) Not Detected (Not Detect); Streptococcus species Not Detected (Not Detect)
[2021-06-12 02:33] LABS: E. coli Detected (Not Detect)
[2021-06-12 02:34] LABS: Candida albicans Not Detected (Not Detect); Candida glabrata Not Detected (Not Detect); Candida krusei Not Detected (Not Detect); Candida parapsilosis Not Detected (Not Detect); Candida tropicalis Not Detected (Not Detect); Enterobacter cloacae complex Not Detected (Not Detect); Haemophilus influenzae Not Detected (Not Detect); Neisseria meningitidis Not Detected (Not Detect); Proteus species Not Detected (Not Detect); Pseudomonas aeruginosa Not Detected (Not Detect); Serratia marcescens Not Detected (Not Detect)
--- NOTE | 2021-06-12 04:03 | PC.NURSE ---
Temp 102.3, HR 131, BP 144/98. Blood cultures positive for E. coli. Provider notified and instructed to continue with current orders.
[2021-06-12 05:33] LABS: Basophils Absolute Auto 0 /uL (0-100); Basophils Percent Auto 0.4 % (0-2); Eosinophils Absolute Auto 0 /uL (0-450); Eosinophils Percent Auto 0.1 % (2-4); Hematocrit 28.8 % (36-46); Hemoglobin 9.8 g/dL (12.0-16.0); Lymphocytes Absolute Auto 200 /uL (1100-4500); Lymphocytes Percent Auto 5.3 % (25-40); Mean Corpuscular HGB Conc 33.9 % (30-36); Mean Corpuscular Hemoglobin 38.5 PG (26-34); Mean Corpuscular Volume 113.5 fL (80-100); Monocytes Absolute Auto 400 /uL (0-900); Monocytes Percent Auto 9.1 % (3-14); Neutrophils Absolute Auto 3800 /uL (1500-7000); Neutrophils Percent Auto 85.1 % (50-75); Platelet Count 90 X10^3/uL (150-400); Red Blood Cell Count 2.54 X10^6/uL (4.0-5.2); Red Cell Distribution Width 17.7 % (11.6-14.8); White Blood Cell Count 4.5 X10^3/uL (4.5-11.0)
[2021-06-12 05:38] LABS: Add Manual Diff / Slide Review SLIDE REVIEW
[2021-06-12 05:46] LABS: Alanine Aminotransferase 23 IU/L (<35); Albumin 3.2 g/dL (3.5-5.0); Albumin Globulin Ratio 1.1 (1.0-2.8); Alkaline Phosphatase 54 U/L (38-126); Aspartate Aminotransferase 80 IU/L (14-36); BUN Creatinine Ratio 7.2 (6-22); Bilirubin Total 1.1 mg/dL (0.2-1.3); Blood Urea Nitrogen 5 mg/dL (7-17); Calcium 6.9 mg/dL (8.4-10.2); Carbon Dioxide 20 mmol/L (22-32); Chloride 103 mmol/L (98-107); Estimated Glomerular Filt Rate > 60.0 mL/min (>60); Glucose 139 mg/dL (70-100); HEMOLYSIS < 15 (0-50); Magnesium 1.1 mg/dL (1.6-2.3); Sodium 131 mmol/L (137-145); Total Protein 6.2 g/dL (6.3-8.2)
[2021-06-12 06:10] LABS: Potassium 2.8 mmol/L (3.4-5.1)
[2021-06-12 07:10] LABS: Macrocytosis 3+
[2021-06-12] MEDS: MAGNESIUM SULFATE 4 GM/100 ML PIGGYBACK IV (07:47)
[2021-06-12] MEDS: ACETAMINOPHEN 325 MG TABLET 975 MG PO ×2 (09:06→16:36)
[2021-06-12] MEDS: MULTIVITAMIN 1 TABLET 1 TAB PO (09:07)
[2021-06-12] MEDS: THIAMINE 100 MG TABLET PO (09:07)
[2021-06-12] MEDS: FOLIC ACID 1 MG TABLET PO (09:07)
[2021-06-12] MEDS: POTASSIUM CHLORIDE 20 MEQ TAB 40 MEQ PO (09:07)
[2021-06-12] MEDS: cefTRIAXone 1,000 MG in SODIUM CHLORIDE 0.9% 100 ML 200 ML IV (12:44)
--- NOTE | 2021-06-12 12:44 | DIET.CONS ---
Dietary Consultation Note Admission Date: 06/11/2021 19:06 Assessment: 40 y/o F admitted for acute sepsis with organ failure. RD consulted for alcoholism. Karina endorses 8-10oz vodka daily. States her appetite was very little about 3 days prior to admission. Usual intake includes soup for lunch, robust dinner, no breakfast. States her appetite has recently improved but not 100%. States she ate a 6 sandwich her brought in yesterday. No weight loss. Mild temporal depression, otherwise no malnutrition signs evident. Elevated glucose of 164mg/dL in recent labs, pending HgA1c. Karina has a son that has T1 diabetes. So she feels quite familiar with associated labs. States she knows she needs to make changes to her drinking. Eager to go home. Ht: 170.18 cm Wt: 75.296 kg BMI: 25.9 UBW: 75kg reported Last BM: 06/12/21 (06/12/21 12:21) MNA: Joe Score: 18 Diet: 06/12/21 Breakfast General (Regular) Diet Diet Modifications: Nutrition Percent Meal Consumed 25% 06/12/21 09:08 Labs: RBC 2.54 X10^6/uL (4.0-5.2) L 06/12/21 04:55 Hgb 9.8 g/dL (12.0-16.0) L 06/12/21 04:55 Hct 28.8 % (36-46) L 06/12/21 04:55 Creatinine 0.69 mg/dL (0.52-1.04) 06/12/21 04:55 Lactate 1.3 mmol/L (0.7-2.1) 06/11/21 13:47 Nutrition Diagnosis: Altered nutrition related lab result r/t elevated glucose aeb glucose of 164mg/dL ; excessive ETOH intake r/t unclear etiology aeb pt's admission and report and organ failure Interventions: MNT for alcoholism hx ; review of hyperglycemia Monitoring/Evaluations: RD monitoring POs Electronically Signed by: Nilam Gold 06/12/21 12:44 Clinical Dietitian [address] [address]
[2021-06-12] MEDS: AMLODIPINE 5 MG TABLET PO (12:47)
[2021-06-12] MEDS: DEXTROSE 5%-0.9% NS 1,000 ML 100 ML IV (13:32)
[2021-06-12] MEDS: SODIUM CHLORIDE 0.9% 100 ML (13:40)
[2021-06-12] MEDS: LORazepam 2 MG/ML INJ IV ×2 (15:38→20:57)
--- NOTE | 2021-06-12 16:01 | P.PN_ITS ---
Subjective Subjective Date Patient Seen: 06/12/21 Time Patient Seen: 09:30 Interval history: Feels improved but still spiking fever and later in the afternoon developed worsening tachycardia and CIWA score of 8 requiring some ativan. Exam Vital Signs (past 8 hours): - 06/12/21 09:06 06/12/21 09:35 06/12/21 09:51 Temperature 103.1 F H 101.8 F H 99.5 F Pulse Rate Respiratory Rate Blood Pressure Pulse Oximetry 06/12/21 12:21 06/12/21 12:26 06/12/21 15:46 Temperature 98.8 F 101.6 F H Pulse Rate 102 H 136 H Respiratory Rate 16 17 Blood Pressure 147/105 H 173/106 H Pulse Oximetry 99 Oxygen Delivery Method Room Air Oxygen Flow Rate 0 Narrative Exam Narrative: General:? Patient is well developed and well nourished, mildly anxious HEENT:? Normocephalic, atraumatic, extraocular muscles intact, oral pharynx is clear and mucous membranes are moist. Neck: supple and symmetric, trachea is midline, no cervical adenopathy. Negative for JVD Chest:? Normal AP diameter and contour without kyphoscoliosis, no tachypnea, equal chest rise bilaterally. Lungs:? CTA b/l no wheezing rhonchi or rales. Cardio:?RRR no m/r/g. Abdomen: S NT ND. No CVA tenderness. Musculoskeletal:? Muscle strength and tone are equal within normal limits, no deformity. Extremities: No edema or joint effusions. No cyanosis or clubbing. Skin:? Pale,? Warm to touch,dry and intact without rashes, ulcerations or petechiae.? Neuro:? Alert and orientated x3,? sensation to touch intact in all extremities, no gross deficits noted of cranial nerves. Mildly tremulous without tongue fasciculations. Psych:? Patient has a well-kept appearance, appropriate affect, mental status attitude thought context and judgment are appropriate for age. Objective Labs Result Diagrams: 06/12/21 04:55 06/12/21 04:55 Labs: Laboratory Results - last 24 hr 06/11/21 06/11/21 06/12/21 11:15 19:12 04:55 WBC 4.5 RBC 2.54 L Hgb 9.8 L Hct 28.8 L MCV 113.5 H MCH 38.5 H MCHC 33.9 RDW 17.7 H Plt Count 90 L Neut % (Auto) 85.1 H Lymph % (Auto) 5.3 L Knox % (Auto) 9.1 Eos % (Auto) 0.1 L Baso % (Auto) 0.4 Neut # (Auto) 3800 Lymph # (Auto) 200 L Knox # (Auto) 400 Eos # (Auto) 0 Baso # (Auto) 0 RBC Morphology Not Reportable Macrocytosis 3+ H Sodium Potassium Chloride Carbon Dioxide BUN Creatinine Estimated GFR BUN/Creatinine Ratio Glucose Calcium Magnesium Total Bilirubin AST ALT Alkaline Phosphatase Total Protein Albumin Globulin Albumin/Globulin Ratio A. baumannii (PCR) Not detected Mariann albicans (PCR) Not detected C. glabrata (PCR) Not detected C. krusei (PCR) Not detected C. parapsilosis (PCR) Not detected C. tropicalis (PCR) Not detected SARS-CoV-2 (PCR) Negative Enterobacteriac sp PCR Detected H E. cloacae complex PCR Not detected Enterococcus sp PCR Not detected E. coli (PCR) Detected H H. influenzae (PCR) Not detected Klebsiella oxytoca PCR Not detected Klebsiella pneumoniae Not detected List. monocytogenes PCR Not detected N. meningitidis (PCR) Not detected Proteus species (PCR) Not detected Serratia marcescens PCR Not detected Staphylococcus sp PCR Not detected Staph aureus (PCR) Not detected mecA-Methicil Res Gene Not Reportable Streptococcus sp PCR Not detected Group A Strep (PCR) Not detected Strep agalactiae (PCR) Not detected Strep pneumoniae (PCR) Not detected P. aeruginosa (PCR) Not detected Jacinto/B-Vanco Res Genes Not Reportable KPC-Carbap Res Gene PCR Not detected 06/12/21 04:55 WBC RBC Hgb Hct MCV MCH MCHC RDW Plt Count Neut % (Auto) Lymph % (Auto) Knox % (Auto) Eos % (Auto) Baso % (Auto) Neut # (Auto) Lymph # (Auto) Knox # (Auto) Eos # (Auto) Baso # (Auto) RBC Morphology Macrocytosis Sodium 131 L Potassium 2.8 L Chloride 103 Carbon Dioxide 20 L BUN 5 L Creatinine 0.69 Estimated GFR > 60.0 BUN/Creatinine Ratio 7.2 Glucose 139 H Calcium 6.9 L Magnesium 1.1 L Total Bilirubin 1.1 AST 80 H ALT 23 Alkaline Phosphatase 54 Total Protein 6.2 L Albumin 3.2 L Globulin 3.0 Albumin/Globulin Ratio 1.1 A. baumannii (PCR) Mariann albicans (PCR) C. glabrata (PCR) C. krusei (PCR) C. parapsilosis (PCR) C. tropicalis (PCR) SARS-CoV-2 (PCR) Enterobacteriac sp PCR E. cloacae complex PCR Enterococcus sp PCR E. coli (PCR) H. influenzae (PCR) Klebsiella oxytoca PCR Klebsiella pneumoniae List. monocytogenes PCR N. meningitidis (PCR) Proteus species (PCR) Serratia marcescens PCR Staphylococcus sp PCR Staph aureus (PCR) mecA-Methicil Res Gene Streptococcus sp PCR Group A Strep (PCR) Strep agalactiae (PCR) Strep pneumoniae (PCR) P. aeruginosa (PCR) Jacinto/B-Vanco Res Genes KPC-Carbap Res Gene PCR PFSH Medical History (Updated 06/11/21 @ 22:35 by Chrissie Fontenot MD) Alcoholism UTI (urinary tract infection) Surgical History (Updated 06/11/21 @ 22:35 by Chrissie Fontenot MD) History of tonsillectomy Family History (Updated 06/11/21 @ 22:37 by Chrissie Fontenot MD) Father Alcohol abuse Hypertension Mother Alcohol abuse Hypertension Ulcerative colitis Social History Smoking Status: Never smoker Assessment & Plan Assessment & Plan narrative: This is a 40-year-old female with daily alcohol use who is admitted for acute sepsis secondary to left pyelonephritis and bacteremia as well as alcohol withdr awal. Left pyelonephritis, present on admission with corresponding bacteremia, Active.? -CT: Left perinephric and periureteral fat stranding and mild diffuse bladder wall thickening are suspicious for cystitis and pyelonephritis.? Less likely, findings could be secondary to a recently passed calculus.? No obstructing stone is seen.? -continue ceftriaxone 1 g IV Q 24 hours until sensitivities and identification are clear.? -transition to oral antibiotics once definitive treatment plan is in place. -blood cultures positive with E. Coli and enterobacter, follow up sensitivities. Sepsis with acute organ dysfunction, present on admission.? Active.? -SOFA score of 4 with elevated bilirubin and thrombocytopenia. -no signs of acute shock on admission. -lactate 2.8 with procalcitonin of 9.0 and white blood count of 7 on admission. -secondary to above. Alcohol withdrawal syndrome, present on admission.? Active.? -patient describes drinking 4-5 small glasses of vodka daily -alcohol withdrawal mild DTs appear present on admission.? -continue lorazepam routinely and as needed per [facility] protocol. Required dosing today. -continue multivitamin, thiamine and magnesium.? Elevated trasnaminase levels, present on admission.? Active. -admission AST 220 with ALT 39 and bilirubin 2.0 -likely alcohol use related or related to sepsis. -no cirrhosis on imaging so far -posterior segment liver lesion noted on imaging with multiphase liver MRI recommended as an outpatient Hyperglycemia, present on admission.? Active.? -glucose of 164 on admission, check A1c and follow blood sugars b.i.d. Hypokalemia, present on admission.? Active.? -potassium 3.1 on admission, continue to replete as necessary -etiology likely related to malnourishment of daily alcohol abuse Hypomagnesemia, active - Mg 1.1, will replete and continue to follow Hyponatremia - likely secondary to chronic etoh. Continue to follow. Not currently symptomatic. Continue Lovenox for DVT prevention Her , Khurram Sepulveda, is her backup decision maker. Code: Full Dispo: remains inpatient, possible discharge home in 1-2 days likely if resolution of fever and improved alcohol withdrawal. Time Spent With Patient Critical Care time: I spent a total of [] minutes of critical care time on this patient's care today; this time is exclusive of procedural time. Scores SOFA PaO2/FIO2: >=400 mmHg Platelets: < 100 Bilirubin: 2.0-5.9 mg/dL Hypotension: MAP >= 70 mmHg Graham Coma Scale: 15 Renal: < 1.2 mg/dL SOFA Score: 4
--- NOTE | 2021-06-12 16:10 | PC.NURSE ---
Day shift - At 1530 Pt began to show CIWA symptoms such as tremors, anxiety, worsening headache. Pt HR also in 130's and Bp was 174/103. I gave PT a CIWA score of 8, and gave 1 mg of IV ativan per protocol. At 1600 I reassessed and PT ciwa score was 6 and improving HR 128 AND BP 146/102. I alerted Dr. brown to situation and he said to monitor Pt and gave no orders.
[2021-06-13] VITALS: BP 160/68; PULSE 129; RESP 19; TEMP 38.5; O2SAT 98
[2021-06-13 00:15] VITALS: BP 160/68; PULSE 129
[2021-06-13] MEDS: cloNIDine 0.1 MG TABLET PO (00:15)
[2021-06-13] MEDS: LORazepam 1 MG TABLET 2 MG PO (00:15)
[2021-06-13 00:19] VITALS: TEMP 38.5
[2021-06-13] MEDS: ACETAMINOPHEN 325 MG TABLET 975 MG PO ×2 (00:19→08:18)
[2021-06-13 00:50] VITALS: TEMP 37.1
[2021-06-13 04:00] VITALS: BP 127/90; PULSE 93; RESP 18; TEMP 36.9; O2SAT 99
[2021-06-13 05:32] LABS: Basophils Absolute Auto 0 /uL (0-100); Basophils Percent Auto 0.3 % (0-2); Eosinophils Absolute Auto 0 /uL (0-450); Eosinophils Percent Auto 0.4 % (2-4); Hematocrit 31.8 % (36-46); Hemoglobin 10.8 g/dL (12.0-16.0); Lymphocytes Absolute Auto 300 /uL (1100-4500); Lymphocytes Percent Auto 7.4 % (25-40); Mean Corpuscular HGB Conc 33.8 % (30-36); Mean Corpuscular Volume 112.2 fL (80-100); Monocytes Absolute Auto 400 /uL (0-900); Monocytes Percent Auto 10.2 % (3-14); Neutrophils Absolute Auto 3100 /uL (1500-7000); Neutrophils Percent Auto 81.7 % (50-75); Platelet Count 107 X10^3/uL (150-400); Red Blood Cell Count 2.83 X10^6/uL (4.0-5.2); Red Cell Distribution Width 17.8 % (11.6-14.8); White Blood Cell Count 3.8 X10^3/uL (4.5-11.0)
[2021-06-13 05:33] LABS: Add Manual Diff / Slide Review SLIDE REVIEW
[2021-06-13 05:36] LABS: Alanine Aminotransferase 22 IU/L (<35); Albumin 3.6 g/dL (3.5-5.0); Alkaline Phosphatase 68 U/L (38-126); Aspartate Aminotransferase 49 IU/L (14-36); BUN Creatinine Ratio 5.1 (6-22); Bilirubin Total 0.8 mg/dL (0.2-1.3); Blood Urea Nitrogen 3 mg/dL (7-17); Calcium 7.9 mg/dL (8.4-10.2); Carbon Dioxide 24 mmol/L (22-32); Chloride 103 mmol/L (98-107); Estimated Glomerular Filt Rate > 60.0 mL/min (>60); Globulin 3.5 g/dL (1.7-4.1); Glucose 114 mg/dL (70-100); HEMOLYSIS < 15 (0-50); Potassium 2.8 mmol/L (3.4-5.1); Sodium 137 mmol/L (137-145); Total Protein 7.1 g/dL (6.3-8.2)
[2021-06-13 05:52] LABS: Procalcitonin 13.2 ng/mL (<0.5)
[2021-06-13 06:30] LABS: Anisocytosis 2+; Macrocytosis 3+
[2021-06-13 08:00] VITALS: BP 128/77; PULSE 98; RESP 18; TEMP 36.8; O2SAT 99
[2021-06-13] MEDS: AMLODIPINE 5 MG TABLET 10 MG PO (08:09)
[2021-06-13] MEDS: MULTIVITAMIN 1 TABLET 1 TAB PO (08:09)
[2021-06-13] MEDS: THIAMINE 100 MG TABLET PO (08:10)
[2021-06-13] MEDS: FOLIC ACID 1 MG TABLET PO (08:10)
[2021-06-13] MEDS: ENOXAPARIN 40 MG/0.4 ML SYRINGE SUBCUT (08:10)
[2021-06-13] MEDS: POTASSIUM CHLORIDE 20 MEQ TAB 40 MEQ PO (08:10)
[2021-06-13 08:27] LABS: Magnesium 2.3 mg/dL (1.6-2.3)
--- NOTE | 2021-06-13 09:33 | P.DS_ITS ---
History of Present Illness History of Present Illness Date Patient Seen: 06/13/21 Time Patient Seen: 09:33 Chief complaint: Possible kidney infection/sepsis- sent by [facility] Narrative: Per Dr. Fontenot, This is a 40-year-old female with daily alcohol use who is admitted for acute sepsis with organ failure related to left-sided pyelonephritis.? She is a heavy alcohol user, drinking 4-5 glasses of vodka per day.? She is experiencing alcohol withdrawal.? She describes 2 weeks of urinary discomfort that she attempted to treat with cranberry juice, which usually works for her urinary tract infections.? She developed a fever of 99.5 yesterday and then 100.6 when she presented to her doctor's office this morning.? She is now having left flank pain and tachycardia up to 119 and her liver enzymes are elevated.? She has gallstones but she has no right upper quadrant pain or tenderness.? On CT KUB she has evidence of left-sided pyelonephritis.? Her MRCP is negative for pancreatitis.? Her potassium is low 3.1 and her glucose is high at 164.? The bilirubin is 2.0 with an AST of 220 and ALT of 39.? In her urine there are 10-30 WBCs.? Her CT scan of the abdomen and MRCP both show a 1 cm posterior segment right liver lobe lesion for which a multiphase liver MRI is recommended.? She has been requiring phenobarbital and lorazepam for her alcohol withdrawal.? She is accompanied by her .? She lives on [facility]. Discharge Providers Provider Date of admission: 06/11/21 19:06 Discharge Date: 06/13/21 Primary care physician: Julien Horner MD Consults: 06/11/21 20:45 Consult to Dietitian, Adult Routine Comment: Reason For Exam: Alcoholism Discharge provider: Alfredo Verde DO Summary Hospital Course Discharge Diagnosis: Left pyelonephritis, present on admission with corresponding bacteremia, Active.? Sepsis with acute organ dysfunction, present on admission.? Active.? Alcohol withdrawal syndrome, present on admission.? Active.? Alcoholic hepatitis, present on admission.? Active. Hyperglycemia, present on admission.?resolved Hypokalemia, present on admission.? Active.? Hypomagnesemia, active Hyponatremia Posterior segment liver lesion, unknown chronicity Hospital Course: This is a 40-year-old female with daily alcohol use who was admitted for acute sepsis secondary to left pyelonephritis and bacteremia as well as alcohol withdrawal. Blood cultures are currently growing an E coli, urine cultures grew E coli which was pansensitive. The patient improved on IV ceftriaxone initially. She continued to have fevers initially which have down trended, and the patient is eating and tolerating a diet and feeling well. On the day of discharge she was changed to oral amoxicillin and will complete another week of antibiotics at home for her pyelonephritis and E coli bacteremia. She did develop some mild alcohol withdrawal which was treated with Ativan per [facility] protocol. Her alcoholic hepatitis also improved after admission with alcohol cessation. Initial imaging did show a posterior segment liver lesion, and follow-up triple phase MRI is recommended as an outpatient for further evaluation. She had a number of electrolyte abnormalities including low potassium, magnesium, and sodium, all of which improved over the course of admission with repletion and resumption of diet. Patient did not want further assistance at this time with alcohol cessation after social work evaluation. Time Spent with Patient Time spent: Greater than 30 minutes Exam Vital Signs (past 8 hours): - 06/13/21 04:00 06/13/21 08:00 Temperature 98.4 F 98.3 F Pulse Rate 93 H 98 H Respiratory Rate 18 18 Blood Pressure 127/90 128/77 Pulse Oximetry 99 99 Oxygen Delivery Method Room Air Oxygen Flow Rate 0 Narrative Exam Narrative: General:? Patient is well developed and well nourished, mildly anxious HEENT:? Normocephalic, atraumatic, extraocular muscles intact, oral pharynx is clear and mucous membranes are moist. Neck: supple and symmetric, trachea is midline, no cervical adenopathy. Negative for JVD Chest:? Normal AP diameter and contour without kyphoscoliosis, no tachypnea, equal chest rise bilaterally. Lungs:? CTA b/l no wheezing rhonchi or rales. Cardio:?RRR no m/r/g. Abdomen: S NT ND. No CVA tenderness. Musculoskeletal:? Muscle strength and tone are equal within normal limits, no deformity. Extremities: No edema or joint effusions. No cyanosis or clubbing. Skin:? Pale,? Warm to touch,dry and intact without rashes, ulcerations or petechiae.? Neuro:? Alert and orientated x3,? sensation to touch intact in all extremities, no gross deficits noted of cranial nerves. Mildly tremulous without tongue fasciculations. Psych:? Patient has a well-kept appearance, appropriate affect, mental status attitude thought context and judgment are appropriate for age. Objective Labs Result Diagrams: 06/13/21 05:03 06/13/21 05:03 Labs: Laboratory Results - last 24 hr 06/13/21 06/13/21 06/13/21 05:03 05:03 05:03 WBC 3.8 L RBC 2.83 L Hgb 10.8 L Hct 31.8 L MCV 112.2 H MCH 38.0 H MCHC 33.8 RDW 17.8 H Plt Count 107 L Neut % (Auto) 81.7 H Lymph % (Auto) 7.4 L Metcalfe % (Auto) 10.2 Eos % (Auto) 0.4 L Baso % (Auto) 0.3 Neut # (Auto) 3100 Lymph # (Auto) 300 L Metcalfe # (Auto) 400 Eos # (Auto) 0 Baso # (Auto) 0 RBC Morphology See below Anisocytosis 2+ H Macrocytosis 3+ H Sodium 137 Potassium 2.8 L Chloride 103 Carbon Dioxide 24 BUN 3 L Creatinine 0.59 Estimated GFR > 60.0 BUN/Creatinine Ratio 5.1 L Glucose 114 H Calcium 7.9 L Magnesium 2.3 Total Bilirubin 0.8 AST 49 H ALT 22 Alkaline Phosphatase 68 Total Protein 7.1 Albumin 3.6 Globulin 3.5 Albumin/Globulin Ratio 1.0 Procalcitonin 13.2 H [facility] Medical History (Updated 06/11/21 @ 22:35 by Chrissie Fontenot MD) Alcoholism UTI (urinary tract infection) Surgical History (Updated 06/11/21 @ 22:35 by Chrissie Fontenot MD) History of tonsillectomy Family History (Updated 06/11/21 @ 22:37 by Chrissie Fontenot MD) Father Alcohol abuse Hypertension Mother Alcohol abuse Hypertension Ulcerative colitis Social History Smoking Status: Never smoker Discharge Plan Discharge Plan Patient Disposition: Home Provider Discharge Comment: You were admitted to the hospital with a kidney infection which entered your blood stream. Antibiotics at home were selected based on culture results. Please complete full course of antibiotics at home. Please follow up with your primary care provider for further management of your blood pressure. You were noted to have a lesion on your liver, please follow up with your primary care provider for further review and additional MRI is recommended. Discharge orders & Medications Prescriptions: New amoxicillin 875 mg tablet 875 mg PO BID 7 Days Qty: 14 0RF Continued amlodipine 10 mg tablet 10 mg PO DAILY 0RF Discontinued lisinopril 20 mg tablet 20 mg PO DAILY 0RF Label Comments: TAKE 1 TABLET BY MOUTH ONCE DAILY Follow up/Referrals: Julien Horner MD [Primary Care Provider] - Diet/Activity/Treatments Diet: Diet as Tolerated Diet comment: try and cut down on alcohol intake Activity: As tolerated Visit Report/Discharge Packet Instructions: Urinary Tract Infection Discharge Data Primary Care Provider: Julien Horner
--- NOTE | 2021-06-13 10:36 | CM.SWNOTE ---
Initial DCP Assessment Note [employer]INE STE[employer]TER HELPER Note Pt is a 40 yo female, resident of [place], presents to the ER w/complaint of Possible kidney infection/sepsis- sent by [facility], admitted for treatment of UTI w/sepsis, in addition, patient is a heavy drinker at approx 4-5 vodka w/OJ drinks daily and needing medical assistance through alcohol withdraw. PCP: Julien Horner Payer: Deandra MORRISON Reviewed chart, met with patient, introduced role. Patient is sitting up in bed, makes good eye contact; affect is flat, patient appears tearful throughout this conversation Patient lives w/ spouse and her 16 yo son, 13 yo son and 11 yo dtr, currently unemployed. Patient confirms her use as 4-5 mixed drinks daily which she states get her buzzed by the end of the day. Patient denies driving, states her 16 yo can provide transport. Patient endorses no one in her family or support system that is sober; that her parents and brother [place] Patient admits to this [employer] STE[employer]TER HELPER that her drinking is a problem. Patient would like to slow down; educated patient that slowing down rarely works for most alcoholics however if that is where patient can begin her recovery, encouraged her to do so. Patient cannot recall last period of sobriety before this hospitalization; states she has been drinking for years, since kids were born (potentially before their ?). Patient does not have any current outpatient MARY treatment providers or MH provider/counselor and denies the need for resources at this time, states I'm not ready for that, I would like to try it on my own first Reviewed above with team during multidisciplinary rounds. CPS report is required. Patient medically stable to DC today w/spouse or friend via pov, denies need for outpatient resources Placed call to CPS to discuss above, 16, 13 and 11 yo in this home w/two adult drinkers. Intake Number: [id number] NATASHA Ibrahim Discharge Planning/Care Management [employer]TER HELPER - System Dispatcher Assessment Start: 06/13/21 10:24 Freq: Status: Active Protocol: Document 06/13/21 10:24 MARLYN (Rec: 06/13/21 10:36 MARLYN [id number]) [employer] FITTER HELPER/System Dispatcher Assessment Presenting Problem H+P Narrative: This is a 40- year-old female with daily alcohol use who is admitted for acute sepsis with organ failure related to left-sided pyelonephritis. She is a heavy alcohol user, drinking 4 -5 glasses of vodka per day. She is experiencing alcohol withdrawal. Precipitating Event(s) Longstanding hx of heavy alcohol use, cannot recall last period of sobriety before this hospitalization. States has been drinking since her children were born, 16, 13, and 11 yo. Patient Strengths Mom to three children, states they are all in school. Patient and spouse both drinkers, patient states we are ready to slow down. Current Behavioral Health Provider(s) No outpatient MARY treatment or Include Facility, Provider, Ph. # MH treatment at this time Family Hx of Behavioral Abuse Strong family h/o alcohol abuse, patient's mom, dad and brother buy large amounts of alochol on the [employer] at a discounted argueta for patient and spouse's use Rehab Facilities? ((Date(s), Location(s) None reported, patient denies ) sobriety or seeking help to quit drinking History of Withdrawal? Seizures? None reported Longest Period of Sobriety This hospital stay according to patient's report, patient could not recall last period of sobriety...hopefully sober during 3 pregnancys (?) did not ask patient about this Psychosocial information & Support Lives w/spouse Khurram, 16 yo son Systems , 13 yo son and 11 yo dtr in [place]. Unemployed. School/Work Unemplyed. Legal Matters - Outstanding Issues None reported Orientation (Person/Place/Time) Oriented Stated Mood Not assessed Affect (Congruent with Mood?) Tearful, withdrawn Thought Content - Specify/Describe WNL Obsessions, Delusions, Hallucinations Thought Processes (Egthcbx-Qbfjfwab-Bwzj Goal directed Proiuyva-Lnbiefoz-Dxpdouromd- Acfbuujjidfbyd-Jdmiokk-Dydjycgiveum- Thought Blocking) Speech (Khzyxq-Dude-Kmrzddy-Rapid-Soft- Normal Loud-Pressured) Motor (Kbvvmp-Ivdfhuclm-Lbgq-Other) Normal Insight (Ueqg-Trkt-Dnfm/Limited) Poor Judgement (Kzvv-Vlzg-Kwap/Limited) Poor Impulse Control (Adequate-Impaired) Impaired Memory (Epffrbxfa-Zbpbkl-Fuyrpl, Not assessed Impaired-Intact) Concentration (Intact-Impaired) Intact Attention (Intact-Impaired) Intact Behavior (Appropriate-Inappropriate) Appropriate Additional Comment See narrative Suicidal Ideation (Plan) Not assessed Homicidal Ideation (Plan) Not assessed Intervention See Narrative RA Plan Home w/family. CPS report pending
== END 2021-06-13 10:45 | disposition home or self-care (01) | DRG 872 ==
LOC: ED 11:33 → AC 19:07
PROVIDERS: Internal Medicine; Admitting Provider Family Medicine; Emergency Provider Emergency Medicine; PCP Obstetrics & Gynecology; Referring Provider Emergency Medicine; Visit Provider Family Medicine
DX: A41.9 Sepsis, unspecified organism (principal); N12 Tubulo-interstitial nephritis, not specified as acute or chronic; F10.231 Alcohol dependence with withdrawal delirium; E87.1 Hypo-osmolality and hyponatremia; R65.20 Severe sepsis without septic shock; K70.10 Alcoholic hepatitis without ascites; E87.6 Hypokalemia; E83.42 Hypomagnesemia; B96.20 Unspecified Escherichia coli [E. coli] as the cause of diseases classified elsewhere; E80.7 Disorder of bilirubin metabolism, unspecified; R73.9 Hyperglycemia, unspecified; Z20.822 Contact with and (suspected) exposure to COVID-19
CPT/HCPCS: 36415; 71045; 74176; 74181; 76705; 80053; 81001; 81003; 81025; 83605; 83690; 83735; 84145; 85025; 87040; 87077; 87086; 87150; 87186; 87205; 87635; 93005; 93010; 96365; 96375; 96376; 99284; C9803; J0696; J1650; J1885; J2060; J2405; J2560; J3475

== ENCOUNTER 2022-01-07 17:00 | Emergency (ER) | payer OTHER, SELFPAY ==
[2021-06-11 19:27] VITALS: BMI 25.9
[2022-01-07 17:10] VITALS: BP 194/119; PULSE 112; RESP 17; TEMP 36.6; O2SAT 99; BMI 25.2
--- NOTE | 2022-01-07 17:13 | ED.NAVMDI ---
HPI - Nausea/Vomiting/Diarrhea <DO Kevin Gómez Filed: 01/10/22 02:36> General Chief complaint: Nausea/Vomiting/Diarrhea Stated complaint: GI bleed Time Seen by Provider: 01/07/22 17:05 Source: patient Mode of arrival: Ambulatory History of Present Illness HPI Narrative: 41F nonsmoker with history of hypertension and daily drinking presents with her significant other and a chief complaint of multiple episodes of bloody diarrhea over the past few days. She denies any fever chills. She denies abdominal pain or cramping. She is not dizzy nor weak or lightheaded. She states that there is always stool along with her bowel movements and she never has just blood. She does not take blood thinners. She denies any dark and tarry appearance. She has had no hematemesis. She denies recent travel, antibiotics or exposure to bad food. She is not dizzy nor weak or lightheaded. She denies the use of aspirin or significant amounts of Motrin. She states that she is completely asymptomatic other than the passage of 6 episodes of bloody diarrhea Related Data Home Medications Medication Instructions Recorded Confirmed amlodipine 10 mg tablet 10 mg PO DAILY 06/13/21 01/07/22 Allergies Allergy/AdvReac Type Severity Reaction Status Date / Time No Known Drug Allergies Allergy Verified 01/07/22 17:12 Review of Systems <DO Kevin Gómez Filed: 01/10/22 02:36> Review of Systems Narrative: GENERAL: Denies chills, fatigue, malaise, fever, sweats. HEENT: Denies sinus pain, ear pain, sore throat, difficulty swallowing, dizziness. RESPIRATORY: Denies dyspnea, cough, wheezing, hemoptysis, sputum. CARDIOVASCULAR: Denies chest pain, palpitations, orthopnea, edema, GASTROINTESTINAL: See HPI : Denies dysuria, frequency, incontinence, hematuria, urinary retention. MUSCULOSKELETAL: denies weakness, joint pain, or bony pain SKIN: Denies rash, skin lesions, or other NEUROLOGIC: Denies weakness, headache, numbness, change in speech, confusion, seizures, incoordination. PSYCHIATRIC: No concerning psychosocial issues. 12 point review of systems is negative except for those stated above Patient History <DO Kevin Gómez Filed: 01/10/22 02:36> Medical History Alcoholism UTI (urinary tract infection) Surgical History History of tonsillectomy Family History Father Alcohol abuse Hypertension Mother Alcohol abuse Hypertension Ulcerative colitis Social History Smoking Status: Never smoker Smoking Status: Never smoker alcohol intake frequency: 3 or more drinks per day Substance Use Type: does not use Exam <Yousif Garcia DO - Last Filed: 01/10/22 02:36> Narrative Exam Narrative: GENERAL: [41] year old patient appears stated age. Well-developed patient, in mild distress. Anxious HEAD: Atraumatic. Normocephalic. EYES: Pupils equal round and reactive. Extraocular motions intact. No scleral icterus. No injection or drainage. ENT: Nose without bleeding, purulent drainage. Throat without erythema, tonsillar hypertrophy or exudate. Airway patent. NECK: Trachea midline. Non tender CARDIOVASCULAR: Tachycardic but regular rhythm without murmurs, gallops, or rubs. RESPIRATORY: Clear to auscultation. Breath sounds equal bilaterally. No wheezes, rales, or rhonchi. GASTROINTESTINAL: Abdomen soft, non-tender, nondistended. EXTREMITIES: No edema or joint tenderness. BACK: Nontender without deformity or crepitance. No flank tenderness. NEURO: AOx3. SKIN: No rash or erythema of visible areas Initial Vital Signs Initial Vital Signs: Vital Signs Temperature 98 F 01/07/22 17:10 Pulse Rate 112 H 01/07/22 17:10 Respiratory Rate 17 01/07/22 17:10 Blood Pressure 194/119 H 01/07/22 17:10 Pulse Oximetry 99 01/07/22 17:10 Oxygen Delivery Method 01/07/22 17:10 <Norma Mcelroy DO - Last Filed: 01/07/22 19:17> Initial Vital Signs Initial Vital Signs: Vital Signs Temperature 98 F 01/07/22 17:10 Pulse Rate 112 H 01/07/22 17:10 Respiratory Rate 17 01/07/22 17:10 Blood Pressure 194/119 H 01/07/22 17:10 Pulse Oximetry 99 01/07/22 17:10 Oxygen Delivery Method 01/07/22 17:10 Course <Yousif Garcia DO - Last Filed: 01/10/22 02:36> Orders Ordered: Discontinued Medications Sodium Chloride (Normal Saline 0.9%) 1,000 mls @ 150 mls/hr IV CONT JOSE Last Infusion: 01/07/22 19:05 Dose: 0 mls/hr Documented By: Infusion: 01/07/22 19:05 Dose: 0 mls/hr Documented By: Admin: 01/07/22 17:37 Dose: 150 mls/hr Documented By: SHAYNA(2) Vital Signs Vital signs: Vital Signs - 8 hr 01/07/22 17:10 01/07/22 17:39 01/07/22 19:04 Temperature 98 F 98.1 F Pulse Rate 112 H 102 H 116 H Respiratory Rate 17 18 20 Blood Pressure 194/119 H 171/111 H 191/125 H Pulse Oximetry 99 99 100 Oxygen Delivery Method Room Air Room Air <Norma Mcelroy DO - Last Filed: 01/07/22 19:17> Orders Ordered: Discontinued Medications Sodium Chloride (Normal Saline 0.9%) 1,000 mls @ 150 mls/hr IV CONT JOSE Last Infusion: 01/07/22 19:05 Dose: 0 mls/hr Documented By: Infusion: 01/07/22 19:05 Dose: 0 mls/hr Documented By: Admin: 01/07/22 17:37 Dose: 150 mls/hr Documented By: SHAYNA(2) Vital Signs Vital signs: Vital Signs - 8 hr 01/07/22 17:10 01/07/22 17:39 01/07/22 19:04 Temperature 98 F 98.1 F Pulse Rate 112 H 102 H 116 H Respiratory Rate 17 18 20 Blood Pressure 194/119 H 171/111 H 191/125 H Pulse Oximetry 99 99 100 Oxygen Delivery Method Room Air Room Air MDM - Nausea/Vomiting/Diarrhea <Yousif Garcia DO - Last Filed: 01/10/22 02:36> Lab Data Result diagrams: 01/07/22 17:26 01/07/22 17:26 Labs: Lab Results 01/07/22 01/07/22 01/07/22 Range/Units 17:26 17:26 17:26 WBC 3.9 L (4.5-11.0) X10^3/uL RBC 2.77 L (4.0-5.2) X10^6/uL Hgb 11.0 L (12.0-16.0) g/dL Hct 31.6 L (36-46) % MCV 114.0 H (80-100) fL MCH 39.8 H (26-34) PG MCHC 34.9 (30-36) % RDW 15.9 H (11.6-14.8) % Plt Count 145 L (150-400) X10^3/uL Neut % (Auto) 62.9 (50-75) % Lymph % (Auto) 22.7 L (25-40) % [place] % (Auto) 11.6 (3-14) % Eos % (Auto) 1.0 L (2-4) % Baso % (Auto) 1.8 (0-2) % Neut # (Auto) 2400 (9365-5886) /uL Lymph # (Auto) 900 L (4632-0973) /uL [place] # (Auto) 400 (0-900) /uL Eos # (Auto) 0 (0-450) /uL Baso # (Auto) 100 (0-100) /uL RBC Morphology See below Macrocytosis 1+ H PT 11.5 (10.1-12.7) SECONDS INR 1.0 (0.9-1.3) APTT 30 (26-36) SECONDS Sodium 136 L (137-145) mmol/L Potassium 3.5 (3.4-5.1) mmol/L Chloride 100 (98-107) mmol/L Carbon Dioxide 22 (22-32) mmol/L BUN 8 (7-17) mg/dL Creatinine 0.52 (0.52-1.04) mg/dL Estimated GFR > 60 (>60) mL/min BUN/Creatinine Ratio 15.4 (6-22) Glucose 102 H (70-100) mg/dL Calcium 8.6 (8.4-10.2) mg/dL Total Bilirubin 0.9 (0.2-1.3) mg/dL AST 191 H (14-36) IU/L ALT 49 H (<35) IU/L Alkaline Phosphatase 97 (38-126) U/L Total Protein 7.6 (6.3-8.2) g/dL Albumin 4.1 (3.5-5.0) g/dL Globulin 3.5 (1.7-4.1) g/dL Albumin/Globulin Ratio 1.2 (1.0-2.8) Lipase 270 (23-300) U/L Blood Type Antibody Screen 01/07/22 Range/Units 17:26 WBC (4.5-11.0) X10^3/uL RBC (4.0-5.2) X10^6/uL Hgb (12.0-16.0) g/dL Hct (36-46) % MCV (80-100) fL MCH (26-34) PG MCHC (30-36) % RDW (11.6-14.8) % Plt Count (150-400) X10^3/uL Neut % (Auto) (50-75) % Lymph % (Auto) (25-40) % [place] % (Auto) (3-14) % Eos % (Auto) (2-4) % Baso % (Auto) (0-2) % Neut # (Auto) (0685-5450) /uL Lymph # (Auto) (8479-2796) /uL [place] # (Auto) (0-900) /uL Eos # (Auto) (0-450) /uL Baso # (Auto) (0-100) /uL RBC Morphology Macrocytosis PT (10.1-12.7) SECONDS INR (0.9-1.3) APTT (26-36) SECONDS Sodium (137-145) mmol/L Potassium (3.4-5.1) mmol/L Chloride (98-107) mmol/L Carbon Dioxide (22-32) mmol/L BUN (7-17) mg/dL Creatinine (0.52-1.04) mg/dL Estimated GFR (>60) mL/min BUN/Creatinine Ratio (6-22) Glucose (70-100) mg/dL Calcium (8.4-10.2) mg/dL Total Bilirubin (0.2-1.3) mg/dL AST (14-36) IU/L ALT (<35) IU/L Alkaline Phosphatase (38-126) U/L Total Protein (6.3-8.2) g/dL Albumin (3.5-5.0) g/dL Globulin (1.7-4.1) g/dL Albumin/Globulin Ratio (1.0-2.8) Lipase (23-300) U/L Blood Type O Positive Antibody Screen Negative Point of Care Testing Test Results Negative Urine Dip Bedside Urine Glucose Negative Bedside Urine Bilirubin - Negative Bedside Urine Ketone - Negative Urine Specific [place] 1.010 Bedside Urine Occult Blood - Negative Bedside Urine pH 6 Bedside Urine Protein - Negative Bedside Urine Urobilinogen - Negative Bedside Urine Nitrite - Negative Bedside Urine Leukocytes - Negative Esterase <Norma Mcelroy, DO - Last Filed: 01/07/22 19:17> Lab Data Labs: Lab Results 01/07/22 01/07/22 01/07/22 Range/Units 17:26 17:26 17:26 WBC 3.9 L (4.5-11.0) X10^3/uL RBC 2.77 L (4.0-5.2) X10^6/uL Hgb 11.0 L (12.0-16.0) g/dL Hct 31.6 L (36-46) % MCV 114.0 H (80-100) fL MCH 39.8 H (26-34) PG MCHC 34.9 (30-36) % RDW 15.9 H (11.6-14.8) % Plt Count 145 L (150-400) X10^3/uL Neut % (Auto) 62.9 (50-75) % Lymph % (Auto) 22.7 L (25-40) % [place] % (Auto) 11.6 (3-14) % Eos % (Auto) 1.0 L (2-4) % Baso % (Auto) 1.8 (0-2) % Neut # (Auto) 2400 (3144-8833) /uL Lymph # (Auto) 900 L (6906-9691) /uL [place] # (Auto) 400 (0-900) /uL Eos # (Auto) 0 (0-450) /uL Baso # (Auto) 100 (0-100) /uL RBC Morphology See below Macrocytosis 1+ H PT 11.5 (10.1-12.7) SECONDS INR 1.0 (0.9-1.3) APTT 30 (26-36) SECONDS Sodium 136 L (137-145) mmol/L Potassium 3.5 (3.4-5.1) mmol/L Chloride 100 (98-107) mmol/L Carbon Dioxide 22 (22-32) mmol/L BUN 8 (7-17) mg/dL Creatinine 0.52 (0.52-1.04) mg/dL Estimated GFR > 60 (>60) mL/min BUN/Creatinine Ratio 15.4 (6-22) Glucose 102 H (70-100) mg/dL Calcium 8.6 (8.4-10.2) mg/dL Total Bilirubin 0.9 (0.2-1.3) mg/dL AST 191 H (14-36) IU/L ALT 49 H (<35) IU/L Alkaline Phosphatase 97 (38-126) U/L Total Protein 7.6 (6.3-8.2) g/dL Albumin 4.1 (3.5-5.0) g/dL Globulin 3.5 (1.7-4.1) g/dL Albumin/Globulin Ratio 1.2 (1.0-2.8) Lipase 270 (23-300) U/L Blood Type Antibody Screen 01/07/22 Range/Units 17:26 WBC (4.5-11.0) X10^3/uL RBC (4.0-5.2) X10^6/uL Hgb (12.0-16.0) g/dL Hct (36-46) % MCV (80-100) fL MCH (26-34) PG MCHC (30-36) % RDW (11.6-14.8) % Plt Count (150-400) X10^3/uL Neut % (Auto) (50-75) % Lymph % (Auto) (25-40) % [place] % (Auto) (3-14) % Eos % (Auto) (2-4) % Baso % (Auto) (0-2) % Neut # (Auto) (2053-6113) /uL Lymph # (Auto) (0767-8539) /uL [place] # (Auto) (0-900) /uL Eos # (Auto) (0-450) /uL Baso # (Auto) (0-100) /uL RBC Morphology Macrocytosis PT (10.1-12.7) SECONDS INR (0.9-1.3) APTT (26-36) SECONDS Sodium (137-145) mmol/L Potassium (3.4-5.1) mmol/L Chloride (98-107) mmol/L Carbon Dioxide (22-32) mmol/L BUN (7-17) mg/dL Creatinine (0.52-1.04) mg/dL Estimated GFR (>60) mL/min BUN/Creatinine Ratio (6-22) Glucose (70-100) mg/dL Calcium (8.4-10.2) mg/dL Total Bilirubin (0.2-1.3) mg/dL AST (14-36) IU/L ALT (<35) IU/L Alkaline Phosphatase (38-126) U/L Total Protein (6.3-8.2) g/dL Albumin (3.5-5.0) g/dL Globulin (1.7-4.1) g/dL Albumin/Globulin Ratio (1.0-2.8) Lipase (23-300) U/L Blood Type O Positive Antibody Screen Negative Point of Care Testing Test Results Negative Urine Dip Bedside Urine Glucose Negative Bedside Urine Bilirubin - Negative Bedside Urine Ketone - Negative Urine Specific [place] 1.010 Bedside Urine Occult Blood - Negative Bedside Urine pH 6 Bedside Urine Protein - Negative Bedside Urine Urobilinogen - Negative Bedside Urine Nitrite - Negative Bedside Urine Leukocytes - Negative Esterase MDM Narrative Medical decision making narrative: This is a 41-year-old female who drinks 4+ alcoholic drinks daily, she presents with bloody diarrhea starting yesterday. She denies abdominal pain, no fevers or chills. No active nausea or vomiting. Patient states it is mixed in the stool. No rectal pain. She does have history of ulcerative colitis in her family with her mother but patient does not herself. Labs overall show anemia but stable, slightly low white count as well as platelets, chemistries show a mildly elevated AST ALT likely related to her alcohol use, bilirubin is appropriate. Patient was unable to give GI panel here in the department. She defers staying longer to give a sample. We discussed CT abdomen and pelvis particularly with her family history of ulcerative colitis but she defers. Patient is open to receiving a prescription for GI panel for home. She is tachycardic and hypertensive and slightly shaky when discussed she states she is having some withdrawal symptoms. She would like to return home at this time I feel she is medically stable and appropriate to do so. Return precautions discussed. Discharge Plan Departure Patient Disposition: Home Clinical Impression: Rectal bleeding, Alcohol withdrawal Instructions: DI for Rectal Bleeding Activity Restrictions/Additional Instructions: Follow up with your physician in the next 1-2 days if not resolving. There is an order for a stool PCR panel to drop off at the lab. This does have to be dropped off at the outpatient lab within 2 hours of making the sample. If you are interested in detox options in the future you can call [phone] and asked to speak with the ER social services director. Please return for fevers, new or worsening abdominal pain, persistent vomiting, high increasing clots or large amounts of blood. Prescriptions: No Action amlodipine 10 mg tablet 10 mg PO DAILY Referrals: Julien Horner MD [Primary Care Provider] - Visit Report Forms: Patient Portal/API
[2022-01-07] MEDS: SODIUM CHLORIDE 0.9% 1,000 ML 150 ML IV (17:37)
[2022-01-07 17:39] VITALS: BP 171/111; PULSE 102; RESP 18; O2SAT 99
[2022-01-07 17:51] LABS: Add Manual Diff / Slide Review NO; Basophils Absolute Auto 100 /uL (0-100); Basophils Percent Auto 1.8 % (0-2); Eosinophils Absolute Auto 0 /uL (0-450); Hematocrit 31.6 % (36-46); Lymphocytes Absolute Auto 900 /uL (1100-4500); Lymphocytes Percent Auto 22.7 % (25-40); Mean Corpuscular HGB Conc 34.9 % (30-36); Mean Corpuscular Hemoglobin 39.8 PG (26-34); Monocytes Absolute Auto 400 /uL (0-900); Monocytes Percent Auto 11.6 % (3-14); Neutrophils Absolute Auto 2400 /uL (1500-7000); Neutrophils Percent Auto 62.9 % (50-75); Platelet Count 145 X10^3/uL (150-400); Red Blood Cell Count 2.77 X10^6/uL (4.0-5.2); Red Cell Distribution Width 15.9 % (11.6-14.8); White Blood Cell Count 3.9 X10^3/uL (4.5-11.0)
[2022-01-07 17:59] LABS: Prothrombin Time 11.5 SECONDS (10.1-12.7)
[2022-01-07 18:02] LABS: PTT Partial Thromboplastin Tim 30 SECONDS (26-36)
[2022-01-07 18:13] LABS: Alanine Aminotransferase 49 IU/L (<35); Albumin 4.1 g/dL (3.5-5.0); Albumin Globulin Ratio 1.2 (1.0-2.8); Alkaline Phosphatase 97 U/L (38-126); Aspartate Aminotransferase 191 IU/L (14-36); BUN Creatinine Ratio 15.4 (6-22); Bilirubin Total 0.9 mg/dL (0.2-1.3); Blood Urea Nitrogen 8 mg/dL (7-17); Calcium 8.6 mg/dL (8.4-10.2); Carbon Dioxide 22 mmol/L (22-32); Chloride 100 mmol/L (98-107); Estimated Glomerular Filt Rate > 60 mL/min (>60); Globulin 3.5 g/dL (1.7-4.1); Glucose 102 mg/dL (70-100); HEMOLYSIS < 15 (0-50); Lipase 270 U/L (23-300); Potassium 3.5 mmol/L (3.4-5.1); Sodium 136 mmol/L (137-145); Total Protein 7.6 g/dL (6.3-8.2)
[2022-01-07 19:04] VITALS: BP 191/125; PULSE 116; RESP 20; TEMP 36.7; O2SAT 100
[2022-01-07 20:00] LABS: Macrocytosis 1+
--- NOTE | 2022-01-08 23:31 | PC.NURSE ---
Lab called to report C-Difficile tox PCR detected. Dr Mcelroy reviewed results, requests to wait for C Diff Toxin conformation before calling patient with antibiotic order.
== END 2022-01-07 19:05 | disposition home or self-care (01) ==
PROVIDERS: Emergency Medicine; Emergency Provider Emergency Medicine; PCP Obstetrics & Gynecology
DX: K62.5 Hemorrhage of anus and rectum (principal); F10.239 Alcohol dependence with withdrawal, unspecified
CPT/HCPCS: 36415; 80053; 81003; 81025; 83690; 85025; 85610; 85730; 86850; 86900; 86901; 96360; 99284

== ENCOUNTER → 2022-01-08 13:54 | Outpatient (CLI) | payer OTHER, SELFPAY ==
[2021-06-11 19:27] VITALS: BMI 25.9
[2022-01-08 22:22] LABS: Campylobacter Not Detected (Not Detect)
[2022-01-08 22:25] LABS: Adenovirus F 40/41 Not Detected (Not Detect); Astrovirus Not Detected (Not Detect); Clostridium difficile toxin AB Detected (Not Detect); Cryptosporidium Not Detected (Not Detect); Cyclospora cayetanensis Not Detected (Not Detect); Entamoeba histolytica Not Detected (Not Detect); Enteroaggregative E.coli Not Detected (Not Detect); Enteropathogenic E.coli Not Detected (Not Detect); Enterotoxigenic E.coli It/st Not Detected (Not Detect); Giardia lamblia Not Detected (Not Detect); Norovirus GI/GII Not Detected (Not Detect); Plesiomonsa shigelloides Not Detected (Not Detect); Rotavirus A Not Detected (Not Detect); Salmonella Not Detected (Not Detect); Sapovirus Not Detected (Not Detect); Shiga-like toxin-prod E.coli Not Detected (Not Detect); Shigella/Enteroinvasive E.coli Not Detected (Not Detect); Vibrio Not Detected (Not Detect); Vibrio cholerae Not Detected (Not Detect); Yersinia enterocolitica Not Detected (Not Detect)
[2022-01-11 15:35] LABS: C difficie Toxins A and B, EIA Positive (Negative)
== END ==
PROVIDERS: PCP Nurse Practitioner; Referring Provider Emergency Medicine; Visit Provider Emergency Medicine
DX: R19.7 Diarrhea, unspecified (principal)
CPT/HCPCS: 87324; 87507

== ENCOUNTER 2022-09-13 18:34 | Emergency (ER) | payer OTHER, SELFPAY ==
[2021-06-11 19:27] VITALS: BMI 25.9
[2022-09-13] VITALS (25 sets, daily range): BP systolic 96–144; BP diastolic 66–92; PULSE 88–108; RESP 14–22; TEMP 36.6; O2SAT 94–99; BMI 23.9
[2022-09-13 19:41] LABS: Alanine Aminotransferase 70 IU/L (<35); Albumin 3.5 g/dL (3.5-5.0); Albumin Globulin Ratio 0.8 (1.0-2.8); Alkaline Phosphatase 347 U/L (38-126); Aspartate Aminotransferase 401 IU/L (14-36); BUN Creatinine Ratio 5.5 (6-22); Blood Urea Nitrogen 3 mg/dL (7-17); Calcium 7.4 mg/dL (8.4-10.2); Carbon Dioxide 27 mmol/L (22-32); Chloride 88 mmol/L (98-107); Estimated Glomerular Filt Rate > 60 mL/min (>60); Globulin 4.4 g/dL (1.7-4.1); Glucose 114 mg/dL (70-100); HEMOLYSIS < 15 (0-50); Lipase 206 U/L (23-300); Sodium 131 mmol/L (137-145); Total Protein 7.9 g/dL (6.3-8.2)
[2022-09-13 19:47] LABS: Potassium 2.6 mmol/L (3.4-5.1)
[2022-09-13 19:53] LABS: Add Manual Diff / Slide Review NO; Basophils Absolute Auto 100 /uL (0-100); Basophils Percent Auto 1.5 % (0-2); Eosinophils Absolute Auto 0 /uL (0-450); Eosinophils Percent Auto 0.5 % (2-4); Hematocrit 31.9 % (36-46); Hemoglobin 11.1 g/dL (12.0-16.0); Lymphocytes Absolute Auto 500 /uL (1100-4500); Mean Corpuscular Hemoglobin 39.2 PG (26-34); Mean Corpuscular Volume 112.2 fL (80-100); Monocytes Absolute Auto 500 /uL (0-900); Monocytes Percent Auto 10.9 % (3-14); Neutrophils Absolute Auto 3200 /uL (1500-7000); Neutrophils Percent Auto 75.1 % (50-75); Platelet Count 160 X10^3/uL (150-400); Red Blood Cell Count 2.84 X10^6/uL (4.0-5.2); Red Cell Distribution Width 15.7 % (11.6-14.8); White Blood Cell Count 4.2 X10^3/uL (4.5-11.0)
[2022-09-13 20:11] LABS: Macrocytosis 1+
[2022-09-13 20:19] LABS: Appearance Urine UA SL CLOUDY; Bilirubin Urine UA 3+ (NEGATIVE); Color Urine UA BROWN; Glucose Urine UA TRACE g/dL (Negative); Ketones Urine UA TRACE (NEGATIVE); Leukocyte Esterase Urine UA TRACE (NEGATIVE); Nitrite Urine UA NEGATIVE (Negative); Occult Blood Urine UA NEGATIVE (Negative); Protein Urine UA TRACE (Negative)
--- NOTE | 2022-09-13 20:24 | DI.US.S_ITS ---
PROCEDURE: US ABDOMEN LIMITED INDICATIONS: RUQ PAIN TECHNIQUE: Real-time focused scanning was performed of the abdomen, with image documentation. COMPARISON: [facility], , US ABDOMEN LIMITED, 06/11/2021, 12:19. FINDINGS: The liver is enlarged but demonstrates increased no focal mass lesions. There is increased parenchymal echogenicity compatible with fatty infiltration. The gallbladder demonstrates biliary sludge and small nonobstructing stones. No gallbladder wall thickening or pericholecystic fluid. Patient was reportedly tender on examination. No intra or extrahepatic biliary ductal dilatation. Pancreas is well seen due to bowel gas. Limited evaluation of the supraumbilical region in the area palpable abnormality demonstrates a fat containing ventral abdominal hernia measuring up to approximately 4.1 x 1.9 x 3.1 cm with a hernia defect measuring up to 1.0 cm. IMPRESSION: 1. Biliary sludge and cholelithiasis without definite evidence of cholecystitis. 2. Hepatomegaly and increased echogenicity compatible with steatosis. 3. Supraumbilical ventral abdominal fat-containing hernia. Dictated by: Pedro Luis Dick M.D. on 09/13/2022 at 23:14 Approved by: Pedro Luis Dick M.D. on 09/13/2022 at 23:17
--- NOTE | 2022-09-13 20:24 | ED.GENADULT ---
HPI - General Adult <Beau Mcneil DO - Last Filed: 09/14/22 17:56> General Chief complaint: Abdominal Pain Stated complaint: post CT/galbladder stones dropped/brown urine/marguerite Time Seen by Provider: 09/13/22 20:13 Source: patient Mode of arrival: Ambulatory History of Present Illness HPI narrative: Patient is a 42 year old female. She does report a significant alcohol history. No prior abdominal surgeries. Almost 2 weeks ago she was seen at an outside facility for right upper quadrant abdominal pain. She stated that she had a CT scan performed. She was told that she potentially had a gallstone that had passed. She was discharged home. She states that she was waiting to hear from general surgery to discuss having her gallbladder removed. She states that since that time her right upper quadrant abdominal pain never really went away. Things are now getting worse. She is also noticed that over the past couple days she is had yellowing of her skin and of her eyes. Patient is also having dark-colored urine. She had a presyncope/syncopal episode 2 days ago. Currently she denies any chest pain or shortness of breath. No change in her bowel habits. She also states that she is had a decreased in appetite. She also has a lump in her mid abdomen right above her umbilicus. This is not painful. She states that she did drink alcohol today. She is no prior history of liver or gallbladder disease. Related Data Home Medications Medication Instructions Recorded Confirmed amlodipine 10 mg tablet 10 mg PO DAILY 06/13/21 01/07/22 Previous Rx's Medication Instructions Recorded chlordiazepoxide HCl 25 mg capsule See Rx Instructions .Route 09/14/22 .COMPLEX #19 caps Allergies Allergy/AdvReac Type Severity Reaction Status Date / Time No Known Drug Allergies Allergy Verified 01/07/22 17:12 Review of Systems <Beau Mcneil DO - Last Filed: 09/14/22 17:56> Review of Systems ROS Unobtainable: All systems reviewed & are unremarkable except as noted in HPI and below Patient History <Beau Mcneil DO - Last Filed: 09/14/22 17:56> Medical History Alcoholism UTI (urinary tract infection) Surgical History History of tonsillectomy Family History Father Alcohol abuse Hypertension Mother Alcohol abuse Hypertension Ulcerative colitis Social History Smoking Status: Former smoker Smoking Status: Former smoker alcohol intake frequency: 3 or more drinks per day Alcohol type: hard liquor Substance Use Type: does not use Exam <DO Kevin Ireland Last Filed: 09/14/22 17:56> Initial Vital Signs Initial Vital Signs: Vital Signs Temperature 98 F 09/13/22 18:39 Pulse Rate 99 H 09/13/22 18:39 Respiratory Rate 18 09/13/22 18:39 Blood Pressure 144/91 H 09/13/22 18:39 Pulse Oximetry 99 09/13/22 18:39 Oxygen Delivery Method Room Air 09/13/22 18:39 HENMT Head: normal to inspection and normocephalic Eyes Sclera: scleral abnormality bilaterally (Icterus) Resp Effort & Inspection: normal respiratory effort Auscultation: clear to auscultation bilaterally Cardio Rate: regular rate Rhythm: regular rhythm GI Inspection: non-distended Palpation: soft, hernia (Supraumbilical ventral hernia felt) and tender (Right upper quadrant/epigastric region) Skin General: no rashes or lesions noted and jaundice Neuro General: patient alert, patient awake, patient oriented x3 and moves all extremities Cognition: normal cognition Speech: speech normal Extrem General: capillary refill normal <Norma Mcelroy DO - Last Filed: 09/14/22 18:13> Initial Vital Signs Initial Vital Signs: Vital Signs Temperature 98 F 09/13/22 18:39 Pulse Rate 99 H 09/13/22 18:39 Respiratory Rate 18 09/13/22 18:39 Blood Pressure 144/91 H 09/13/22 18:39 Pulse Oximetry 99 09/13/22 18:39 Oxygen Delivery Method Room Air 09/13/22 18:39 Course <Beau Mcneil DO - Last Filed: 09/14/22 17:56> Orders Ordered: Discontinued Medications POTASSIUM CHLORIDE IN WATER (Potassium Cl 10 Meq/100 Ml Brittaney) 10 meq in 100 mls @ 100 mls/hr IV Q1H JOSE Stop: 09/14/22 00:29 Last Infusion: 09/14/22 00:52 Dose: 0 mls/hr Documented By: Admin: 09/13/22 23:52 Dose: 100 mls/hr Documented By: Infusion: 09/13/22 23:52 Dose: 100 mls/hr Documented By: Admin: 09/13/22 22:56 Dose: 100 mls/hr Documented By: Infusion: 09/13/22 22:54 Dose: 0 mls/hr Documented By: Admin: 09/13/22 21:49 Dose: 100 mls/hr Documented By: Infusion: 09/13/22 21:49 Dose: 100 mls/hr Documented By: Admin: 09/13/22 20:43 Dose: 100 mls/hr Documented By: LAUREN Sodium Chloride (Normal Saline 0.9%) 1,000 mls @ 125 mls/hr IV CONT JOSE Last Infusion: 09/14/22 15:23 Dose: 0 mls/hr Documented By: Admin: 09/14/22 12:37 Dose: 125 mls/hr Documented By: Infusion: 09/14/22 12:04 Dose: 125 mls/hr Documented By: Admin: 09/14/22 04:04 Dose: 125 mls/hr Documented By: Infusion: 09/14/22 04:04 Dose: 125 mls/hr Documented By: Admin: 09/13/22 20:44 Dose: 125 mls/hr Documented By: LAUREN Ibuprofen (Ibuprofen 400 Mg Tablet) 800 mg PO NOW ONE Stop: 09/14/22 09:16 Last Admin: 09/14/22 09:23 Dose: 800 mg Documented By: SHAYNA Lorazepam (Lorazepam 2 Mg/Ml Inj) 0.5 mg IV NOW ONE Stop: 09/14/22 09:16 Last Admin: 09/14/22 09:22 Dose: 0.5 mg Documented By: SHAYNA Ondansetron HCl (Ondansetron 4 Mg Odt) 4 mg PO NOW PRN PRN Reason: Nausea And Vomiting Ondansetron HCl (Ondansetron 4 Mg/2 Ml Inj) 4 mg IV NOW PRN PRN Reason: Nausea And Vomiting Phenobarbital (Phenobarbital 65 Mg/Ml Vial) 130 mg IV NOW ONE Stop: 09/14/22 13:08 Last Admin: 09/14/22 13:28 Dose: 130 mg Documented By: SHAYNA Vital Signs Vital signs: Vital Signs - 8 hr 09/14/22 12:43 09/14/22 12:44 09/14/22 12:44 Pulse Rate 104 H 102 H Respiratory Rate 18 Blood Pressure 116/76 114/79 Pulse Oximetry 97 95 Oxygen Delivery Method Room Air 09/14/22 12:45 09/14/22 13:00 09/14/22 13:00 Pulse Rate 104 H 104 H Respiratory Rate Blood Pressure 113/79 Pulse Oximetry 96 95 Oxygen Delivery Method 09/14/22 13:15 09/14/22 13:20 09/14/22 13:20 Pulse Rate 103 H 102 H Respiratory Rate Blood Pressure 122/75 Pulse Oximetry 96 95 Oxygen Delivery Method 09/14/22 13:30 09/14/22 15:08 Pulse Rate 100 H 98 H Respiratory Rate 19 Blood Pressure 122/65 Pulse Oximetry 96 96 Oxygen Delivery Method Room Air <Norma Mcelroy, - Last Filed: 09/14/22 18:13> Orders Ordered: Discontinued Medications POTASSIUM CHLORIDE IN WATER (Potassium Cl 10 Meq/100 Ml Brittaney) 10 meq in 100 mls @ 100 mls/hr IV Q1H JOSE Stop: 09/14/22 00:29 Last Infusion: 09/14/22 00:52 Dose: 0 mls/hr Documented By: Admin: 09/13/22 23:52 Dose: 100 mls/hr Documented By: Infusion: 09/13/22 23:52 Dose: 100 mls/hr Documented By: Admin: 09/13/22 22:56 Dose: 100 mls/hr Documented By: Infusion: 09/13/22 22:54 Dose: 0 mls/hr Documented By: Admin: 09/13/22 21:49 Dose: 100 mls/hr Documented By: Infusion: 09/13/22 21:49 Dose: 100 mls/hr Documented By: Admin: 09/13/22 20:43 Dose: 100 mls/hr Documented By: LAUREN Sodium Chloride (Normal Saline 0.9%) 1,000 mls @ 125 mls/hr IV CONT JOSE Last Infusion: 09/14/22 15:23 Dose: 0 mls/hr Documented By: Admin: 09/14/22 12:37 Dose: 125 mls/hr Documented By: Infusion: 09/14/22 12:04 Dose: 125 mls/hr Documented By: Admin: 09/14/22 04:04 Dose: 125 mls/hr Documented By: Infusion: 09/14/22 04:04 Dose: 125 mls/hr Documented By: Admin: 09/13/22 20:44 Dose: 125 mls/hr Documented By: LAUREN Ibuprofen (Ibuprofen 400 Mg Tablet) 800 mg PO NOW ONE Stop: 09/14/22 09:16 Last Admin: 09/14/22 09:23 Dose: 800 mg Documented By: SHAYNA Lorazepam (Lorazepam 2 Mg/Ml Inj) 0.5 mg IV NOW ONE Stop: 09/14/22 09:16 Last Admin: 09/14/22 09:22 Dose: 0.5 mg Documented By: SHAYNA Ondansetron HCl (Ondansetron 4 Mg Odt) 4 mg PO NOW PRN PRN Reason: Nausea And Vomiting Ondansetron HCl (Ondansetron 4 Mg/2 Ml Inj) 4 mg IV NOW PRN PRN Reason: Nausea And Vomiting Phenobarbital (Phenobarbital 65 Mg/Ml Vial) 130 mg IV NOW ONE Stop: 09/14/22 13:08 Last Admin: 09/14/22 13:28 Dose: 130 mg Documented By: SHAYNA Vital Signs Vital signs: Vital Signs - 8 hr 09/14/22 12:43 09/14/22 12:44 09/14/22 12:44 Pulse Rate 104 H 102 H Respiratory Rate 18 Blood Pressure 116/76 114/79 Pulse Oximetry 97 95 Oxygen Delivery Method Room Air 09/14/22 12:45 09/14/22 13:00 09/14/22 13:00 Pulse Rate 104 H 104 H Respiratory Rate Blood Pressure 113/79 Pulse Oximetry 96 95 Oxygen Delivery Method 09/14/22 13:15 09/14/22 13:20 09/14/22 13:20 Pulse Rate 103 H 102 H Respiratory Rate Blood Pressure 122/75 Pulse Oximetry 96 95 Oxygen Delivery Method 09/14/22 13:30 09/14/22 15:08 Pulse Rate 100 H 98 H Respiratory Rate 19 Blood Pressure 122/65 Pulse Oximetry 96 96 Oxygen Delivery Method Room Air Medical Decision Making <Beau Mcneil DO - Last Filed: 09/14/22 17:56> Medical Records Medical records reviewed: Yes I reviewed the patient's medical records. Lab Data Lab results reviewed: Yes I reviewed the patient's lab results. 09/14/22 06:20 09/14/22 06:20 Labs: Lab Results 09/13/22 09/13/22 09/13/22 Range/Units 19:18 19:18 19:18 WBC 4.2 L (4.5-11.0) X10^3/uL RBC 2.84 L (4.0-5.2) X10^6/uL Hgb 11.1 L (12.0-16.0) g/dL Hct 31.9 L (36-46) % MCV 112.2 H (80-100) fL MCH 39.2 H (26-34) PG MCHC 35.0 (30-36) % RDW 15.7 H (11.6-14.8) % Plt Count 160 (150-400) X10^3/uL Neut % (Auto) 75.1 H (50-75) % Lymph % (Auto) 12.0 L (25-40) % Waldo % (Auto) 10.9 (3-14) % Eos % (Auto) 0.5 L (2-4) % Baso % (Auto) 1.5 (0-2) % Neut # (Auto) 3200 (5887-9699) /uL Lymph # (Auto) 500 L (7333-3891) /uL [place] # (Auto) 500 (0-900) /uL Eos # (Auto) 0 (0-450) /uL Baso # (Auto) 100 (0-100) /uL RBC Morphology See below Macrocytosis 1+ H Target Cells Sodium 131 L (137-145) mmol/L Potassium 2.6 L* (3.4-5.1) mmol/L Chloride 88 L (98-107) mmol/L Carbon Dioxide 27 (22-32) mmol/L BUN 3 L (7-17) mg/dL Creatinine 0.55 (0.52-1.04) mg/dL Estimated GFR > 60 (>60) mL/min BUN/Creatinine Ratio 5.5 L (6-22) Glucose 114 H (70-100) mg/dL Calcium 7.4 L (8.4-10.2) mg/dL Total Bilirubin 17.0 H (0.2-1.3) mg/dL Conjugated Bilirubin (0.0-0.3) md/dL Unconjugated Bilirubin (0.0-1.1) mg/dL AST 401 H (14-36) IU/L ALT 70 H (<35) IU/L Alkaline Phosphatase 347 H (38-126) U/L Total Protein 7.9 (6.3-8.2) g/dL Albumin 3.5 (3.5-5.0) g/dL Globulin 4.4 H (1.7-4.1) g/dL Albumin/Globulin Ratio 0.8 L (1.0-2.8) Lipase 206 (23-300) U/L Urine Color Urine Appearance Urine pH (4.5-8.0) Ur Specific [place] (1.000-1.035) Urine Protein (Negative) Urine Glucose (UA) (Negative) g/dL Urine Ketones (NEGATIVE) Urine Occult Blood (Negative) Urine Nitrate (Negative) Urine Bilirubin (NEGATIVE) Ur Bilirubin Confirm (Negative) Urine Urobilinogen (0.2) E.U./dL Ur Leukocyte Esterase (NEGATIVE) Urine RBC (0-5/HPF) Urine WBC (0-5/HPF) Ur Squamous Epith Cells (0-5/HPF) Urine Bacteria (None) Ur Culture Indicated? Urine Test (Negative) Acetaminophen < 10 (10-30) ug/mL Ethyl Alcohol 27 H ( - 10) mg/dL 09/13/22 09/13/22 09/14/22 Range/Units 20:08 20:08 06:20 WBC 4.7 (4.5-11.0) X10^3/uL RBC 2.54 L (4.0-5.2) X10^6/uL Hgb 10.0 L (12.0-16.0) g/dL Hct 28.9 L (36-46) % MCV 113.7 H (80-100) fL MCH 39.5 H (26-34) PG MCHC 34.7 (30-36) % RDW 15.6 H (11.6-14.8) % Plt Count 127 L (150-400) X10^3/uL Neut % (Auto) 69.0 (50-75) % Lymph % (Auto) 15.2 L (25-40) % [place] % (Auto) 13.3 (3-14) % Eos % (Auto) 1.5 L (2-4) % Baso % (Auto) 1.0 (0-2) % Neut # (Auto) 3200 (1586-4740) /uL Lymph # (Auto) 700 L (1853-2749) /uL Wal[place] # (Auto) 600 (0-900) /uL Eos # (Auto) 100 (0-450) /uL Baso # (Auto) 0 (0-100) /uL RBC Morphology See below Macrocytosis 2+ H Target Cells 2+ H Sodium (137-145) mmol/L Potassium (3.4-5.1) mmol/L Chloride (98-107) mmol/L Carbon Dioxide (22-32) mmol/L BUN (7-17) mg/dL Creatinine (0.52-1.04) mg/dL Estimated GFR (>60) mL/min BUN/Creatinine Ratio (6-22) Glucose (70-100) mg/dL Calcium (8.4-10.2) mg/dL Total Bilirubin (0.2-1.3) mg/dL Conjugated Bilirubin (0.0-0.3) md/dL Unconjugated Bilirubin (0.0-1.1) mg/dL AST (14-36) IU/L ALT (<35) IU/L Alkaline Phosphatase (38-126) U/L Total Protein (6.3-8.2) g/dL Albumin (3.5-5.0) g/dL Globulin (1.7-4.1) g/dL Albumin/Globulin Ratio (1.0-2.8) Lipase (23-300) U/L Urine Color Brown Urine Appearance Sl cloudy Urine pH 7.5 (4.5-8.0) Ur Specific [place] 1.010 (1.000-1.035) Urine Protein Trace H (Negative) Urine Glucose (UA) Trace H (Negative) g/dL Urine Ketones Trace H (NEGATIVE) Urine Occult Blood Negative (Negative) Urine Nitrate Negative (Negative) Urine Bilirubin 3+ H (NEGATIVE) Ur Bilirubin Confirm Positive H (Negative) Urine Urobilinogen 1.0 (0.2) E.U./dL Ur Leukocyte Esterase Trace H (NEGATIVE) Urine RBC None seen (0-5/HPF) Urine WBC 5-10/hpf H (0-5/HPF) Ur Squamous Epith Cells 1-5 /hpf (0-5/HPF) Urine Bacteria Occasional (0-1) (None) Ur Culture Indicated? Specimen cultured Urine Test Negative (Negative) Acetaminophen (10-30) ug/mL Ethyl Alcohol ( - 10) mg/dL 09/14/22 Range/Units 06:20 WBC (4.5-11.0) X10^3/uL RBC (4.0-5.2) X10^6/uL Hgb (12.0-16.0) g/dL Hct (36-46) % MCV (80-100) fL MCH (26-34) PG MCHC (30-36) % RDW (11.6-14.8) % Plt Count (150-400) X10^3/uL Neut % (Auto) (50-75) % Lymph % (Auto) (25-40) % [place] % (Auto) (3-14) % Eos % (Auto) (2-4) % Baso % (Auto) (0-2) % Neut # (Auto) (8599-1507) /uL Lymph # (Auto) (7598-6856) /uL [place] # (Auto) (0-900) /uL Eos # (Auto) (0-450) /uL Baso # (Auto) (0-100) /uL RBC Morphology Macrocytosis Target Cells Sodium 131 L (137-145) mmol/L Potassium 3.5 (3.4-5.1) mmol/L Chloride 92 L (98-107) mmol/L Carbon Dioxide 29 (22-32) mmol/L BUN 2 L (7-17) mg/dL Creatinine 0.60 (0.52-1.04) mg/dL Estimated GFR > 60 (>60) mL/min BUN/Creatinine Ratio 3.3 L (6-22) Glucose 100 (70-100) mg/dL Calcium 7.2 L (8.4-10.2) mg/dL Total Bilirubin 15.7 H (0.2-1.3) mg/dL Conjugated Bilirubin 9.0 H (0.0-0.3) md/dL Unconjugated Bilirubin 1.5 H (0.0-1.1) mg/dL AST 351 H (14-36) IU/L ALT 61 H (<35) IU/L Alkaline Phosphatase 287 H (38-126) U/L Total Protein 7.1 (6.3-8.2) g/dL Albumin 3.0 L (3.5-5.0) g/dL Globulin 4.1 (1.7-4.1) g/dL Albumin/Globulin Ratio 0.7 L (1.0-2.8) Lipase 241 (23-300) U/L Urine Color Urine Appearance Urine pH (4.5-8.0) Ur Specific [place] (1.000-1.035) Urine Protein (Negative) Urine Glucose (UA) (Negative) g/dL Urine Ketones (NEGATIVE) Urine Occult Blood (Negative) Urine Nitrate (Negative) Urine Bilirubin (NEGATIVE) Ur Bilirubin Confirm (Negative) Urine Urobilinogen (0.2) E.U./dL Ur Leukocyte Esterase (NEGATIVE) Urine RBC (0-5/HPF) Urine WBC (0-5/HPF) Ur Squamous Epith Cells (0-5/HPF) Urine Bacteria (None) Ur Culture Indicated? Urine Test (Negative) Acetaminophen (10-30) ug/mL Ethyl Alcohol ( - 10) mg/dL Urine Dip Bedside Urine Glucose 100 mg/dl Bedside Urine Bilirubin +++ 4 Bedside Urine Ketone +/- 5 Urine Specific [place] 1.005 Bedside Urine Occult Blood - Negative Bedside Urine pH 7 Bedside Urine Protein +/- 15 Bedside Urine Urobilinogen +/- 1mg Bedside Urine Nitrite + Positive Bedside Urine Leukocytes ++ 125 Esterase Point of care testing: Urine Dip Bedside Urine Glucose 100 mg/dl Bedside Urine Bilirubin +++ 4 Bedside Urine Ketone +/- 5 Urine Specific [place] 1.005 Bedside Urine Occult Blood - Negative Bedside Urine pH 7 Bedside Urine Protein +/- 15 Bedside Urine Urobilinogen +/- 1mg Bedside Urine Nitrite + Positive Bedside Urine Leukocytes ++ 125 Esterase Imaging Data US - abdomen: Radiologist's Impression: PROCEDURE: US ABDOMEN LIMITED ? INDICATIONS:? RUQ PAIN ? TECHNIQUE:? Real-time focused scanning was performed of the abdomen, with image documentation.? ? COMPARISON:? , US, US ABDOMEN LIMITED, 06/11/2021, 12:19. ? FINDINGS:? ? The liver is enlarged but demonstrates increased no focal mass lesions.? There is increased parenchymal echogenicity compatible with fatty infiltration. ? The gallbladder demonstrates biliary sludge and small nonobstructing stones.? No gallbladder wall thickening or pericholecystic fluid.? Patient was reportedly tender on examination. ? No intra or extrahepatic biliary ductal dilatation. ? Pancreas is well seen due to bowel gas. ? Limited evaluation of the supraumbilical region in the area palpable abnormality demonstrates a fat containing ventral abdominal hernia measuring up to approximately 4.1 x 1.9 x 3.1 cm with a hernia defect measuring up to 1.0 cm. ? ? IMPRESSION:? ? 1. Biliary sludge and cholelithiasis without definite evidence of cholecystitis. ? 2. Hepatomegaly and increased echogenicity compatible with steatosis. ? 3. Supraumbilical ventral abdominal fat-containing hernia.? ECG Data Attestation: I personally reviewed and interpreted this ECG as follows: Interpretation: Sinus rhythm Normal axis Ventricular rate 92 Normal QRS QTC [address] T wave changes MDM Narrative Medical decision making narrative: I was able to obtain the CT report from her emergency department visit at [facility]. CT was dated 09/02/2022 It showed hepatomegaly with moderate diffuse hepatic steatosis. Small 8 mm isodense nodule in the right hepatic lobe likely representing focal fatty sparing versus small nodule. Cholelithiasis without CT evidence of acute cholecystitis Patient is jaundiced today. She has a significant elevation in her LFTs and bilirubin however her lipase is unremarkable. She is no leukocytosis. Is hypokalemic. She was given IV potassium for this. Right upper quadrant ultrasound during this visit again shows cholelithiasis without acute cholecystitis. CT scan from 2 weeks ago did not show any pancreatic masses. I feel that we can hold on repeat CT scan today. Given the patient's presentation in the jaundice in her lab abnormalities patient does require a MRCP for further evaluation of potential common bile duct stone. I do not have this available at this time in the emergency department but will be available in the morning. Repeat labs were ordered. MRCP ordered. Care turned over to Dr. Mcelroy to follow-up on MRCP and disposition. I did discuss all this with the patient. She expressed understanding and agreement. Patient does have a nitrite positive urine but does not have specific UTI like symptoms. She does express dark-colored urine. The ventral hernia is causing minimal discomfort today. <Norma Mcelroy, DO - Last Filed: 09/14/22 18:13> Lab Data Labs: Lab Results 07/12/2709/13/22 09/13/22 Range/Units 19:18 19:18 19:18 WBC 4.2 L (4.5-11.0) X10^3/uL RBC 2.84 L (4.0-5.2) X10^6/uL Hgb 11.1 L (12.0-16.0) g/dL Hct 31.9 L (36-46) % MCV 112.2 H (80-100) fL MCH 39.2 H (26-34) PG MCHC 35.0 (30-36) % RDW 15.7 H (11.6-14.8) % Plt Count 160 (150-400) X10^3/uL Neut % (Auto) 75.1 H (50-75) % Lymph % (Auto) 12.0 L (25-40) % [place] % (Auto) 10.9 (3-14) % Eos % (Auto) 0.5 L (2-4) % Baso % (Auto) 1.5 (0-2) % Neut # (Auto) 3200 (4435-5374) /uL Lymph # (Auto) 500 L (8033-5721) /uL [place] # (Auto) 500 (0-900) /uL Eos # (Auto) 0 (0-450) /uL Baso # (Auto) 100 (0-100) /uL RBC Morphology See below Macrocytosis 1+ H Target Cells Sodium 131 L (137-145) mmol/L Potassium 2.6 L* (3.4-5.1) mmol/L Chloride 88 L (98-107) mmol/L Carbon Dioxide 27 (22-32) mmol/L BUN 3 L (7-17) mg/dL Creatinine 0.55 (0.52-1.04) mg/dL Estimated GFR > 60 (>60) mL/min BUN/Creatinine Ratio 5.5 L (6-22) Glucose 114 H (70-100) mg/dL Calcium 7.4 L (8.4-10.2) mg/dL Total Bilirubin 17.0 H (0.2-1.3) mg/dL Conjugated Bilirubin (0.0-0.3) md/dL Unconjugated Bilirubin (0.0-1.1) mg/dL AST 401 H (14-36) IU/L ALT 70 H (<35) IU/L Alkaline Phosphatase 347 H (38-126) U/L Total Protein 7.9 (6.3-8.2) g/dL Albumin 3.5 (3.5-5.0) g/dL Globulin 4.4 H (1.7-4.1) g/dL Albumin/Globulin Ratio 0.8 L (1.0-2.8) Lipase 206 (23-300) U/L Urine Color Urine Appearance Urine pH (4.5-8.0) Ur Specific [place] (1.000-1.035) Urine Protein (Negative) Urine Glucose (UA) (Negative) g/dL Urine Ketones (NEGATIVE) Urine Occult Blood (Negative) Urine Nitrate (Negative) Urine Bilirubin (NEGATIVE) Ur Bilirubin Confirm (Negative) Urine Urobilinogen (0.2) E.U./dL Ur Leukocyte Esterase (NEGATIVE) Urine RBC (0-5/HPF) Urine WBC (0-5/HPF) Ur Squamous Epith Cells (0-5/HPF) Urine Bacteria (None) Ur Culture Indicated? Urine Test (Negative) Acetaminophen < 10 (10-30) ug/mL Ethyl Alcohol 27 H ( - 10) mg/dL 09/13/22 09/13/22 09/14/22 Range/Units 20:08 20:08 06:20 WBC 4.7 (4.5-11.0) X10^3/uL RBC 2.54 L (4.0-5.2) X10^6/uL Hgb 10.0 L (12.0-16.0) g/dL Hct 28.9 L (36-46) % MCV 113.7 H (80-100) fL MCH 39.5 H (26-34) PG MCHC 34.7 (30-36) % RDW 15.6 H (11.6-14.8) % Plt Count 127 L (150-400) X10^3/uL Neut % (Auto) 69.0 (50-75) % Lymph % (Auto) 15.2 L (25-40) % [place] % (Auto) 13.3 (3-14) % Eos % (Auto) 1.5 L (2-4) % Baso % (Auto) 1.0 (0-2) % Neut # (Auto) 3200 (3242-0120) /uL Lymph # (Auto) 700 L (8533-9227) /uL [place] # (Auto) 600 (0-900) /uL Eos # (Auto) 100 (0-450) /uL Baso # (Auto) 0 (0-100) /uL RBC Morphology See below Macrocytosis 2+ H Target Cells 2+ H Sodium (137-145) mmol/L Potassium (3.4-5.1) mmol/L Chloride (98-107) mmol/L Carbon Dioxide (22-32) mmol/L BUN (7-17) mg/dL Creatinine (0.52-1.04) mg/dL Estimated GFR (>60) mL/min BUN/Creatinine Ratio (6-22) Glucose (70-100) mg/dL Calcium (8.4-10.2) mg/dL Total Bilirubin (0.2-1.3) mg/dL Conjugated Bilirubin (0.0-0.3) md/dL Unconjugated Bilirubin (0.0-1.1) mg/dL AST (14-36) IU/L ALT (<35) IU/L Alkaline Phosphatase (38-126) U/L Total Protein (6.3-8.2) g/dL Albumin (3.5-5.0) g/dL Globulin (1.7-4.1) g/dL Albumin/Globulin Ratio (1.0-2.8) Lipase (23-300) U/L Urine Color Brown Urine Appearance Sl cloudy Urine pH 7.5 (4.5-8.0) Ur Specific [place] 1.010 (1.000-1.035) Urine Protein Trace H (Negative) Urine Glucose (UA) Trace H (Negative) g/dL Urine Ketones Trace H (NEGATIVE) Urine Occult Blood Negative (Negative) Urine Nitrate Negative (Negative) Urine Bilirubin 3+ H (NEGATIVE) Ur Bilirubin Confirm Positive H (Negative) Urine Urobilinogen 1.0 (0.2) E.U./dL Ur Leukocyte Esterase Trace H (NEGATIVE) Urine RBC None seen (0-5/HPF) Urine WBC 5-10/hpf H (0-5/HPF) Ur Squamous Epith Cells 1-5 /hpf (0-5/HPF) Urine Bacteria Occasional (0-1) (None) Ur Culture Indicated? Specimen cultured Urine Test Negative (Negative) Acetaminophen (10-30) ug/mL Ethyl Alcohol ( - 10) mg/dL 09/14/22 Range/Units 06:20 WBC (4.5-11.0) X10^3/uL RBC (4.0-5.2) X10^6/uL Hgb (12.0-16.0) g/dL Hct (36-46) % MCV (80-100) fL MCH (26-34) PG MCHC (30-36) % RDW (11.6-14.8) % Plt Count (150-400) X10^3/uL Neut % (Auto) (50-75) % Lymph % (Auto) (25-40) % [place] % (Auto) (3-14) % Eos % (Auto) (2-4) % Baso % (Auto) (0-2) % Neut # (Auto) (3827-9203) /uL Lymph # (Auto) (2535-6138) /uL [place] # (Auto) (0-900) /uL Eos # (Auto) (0-450) /uL Baso # (Auto) (0-100) /uL RBC Morphology Macrocytosis Target Cells Sodium 131 L (137-145) mmol/L Potassium 3.5 (3.4-5.1) mmol/L Chloride 92 L (98-107) mmol/L Carbon Dioxide 29 (22-32) mmol/L BUN 2 L (7-17) mg/dL Creatinine 0.60 (0.52-1.04) mg/dL Estimated GFR > 60 (>60) mL/min BUN/Creatinine Ratio 3.3 L (6-22) Glucose 100 (70-100) mg/dL Calcium 7.2 L (8.4-10.2) mg/dL Total Bilirubin 15.7 H (0.2-1.3) mg/dL Conjugated Bilirubin 9.0 H (0.0-0.3) md/dL Unconjugated Bilirubin 1.5 H (0.0-1.1) mg/dL AST 351 H (14-36) IU/L ALT 61 H (<35) IU/L Alkaline Phosphatase 287 H (38-126) U/L Total Protein 7.1 (6.3-8.2) g/dL Albumin 3.0 L (3.5-5.0) g/dL Globulin 4.1 (1.7-4.1) g/dL Albumin/Globulin Ratio 0.7 L (1.0-2.8) Lipase 241 (23-300) U/L Urine Color Urine Appearance Urine pH (4.5-8.0) Ur Specific [place] (1.000-1.035) Urine Protein (Negative) Urine Glucose (UA) (Negative) g/dL Urine Ketones (NEGATIVE) Urine Occult Blood (Negative) Urine Nitrate (Negative) Urine Bilirubin (NEGATIVE) Ur Bilirubin Confirm (Negative) Urine Urobilinogen (0.2) E.U./dL Ur Leukocyte Esterase (NEGATIVE) Urine RBC (0-5/HPF) Urine WBC (0-5/HPF) Ur Squamous Epith Cells (0-5/HPF) Urine Bacteria (None) Ur Culture Indicated? Urine Test (Negative) Acetaminophen (10-30) ug/mL Ethyl Alcohol ( - 10) mg/dL Urine Dip Bedside Urine Glucose 100 mg/dl Bedside Urine Bilirubin +++ 4 Bedside Urine Ketone +/- 5 Urine Specific [place] 1.005 Bedside Urine Occult Blood - Negative Bedside Urine pH 7 Bedside Urine Protein +/- 15 Bedside Urine Urobilinogen +/- 1mg Bedside Urine Nitrite + Positive Bedside Urine Leukocytes ++ 125 Esterase Point of care testing: Urine Dip Bedside Urine Glucose 100 mg/dl Bedside Urine Bilirubin +++ 4 Bedside Urine Ketone +/- 5 Urine Specific [place] 1.005 Bedside Urine Occult Blood - Negative Bedside Urine pH 7 Bedside Urine Protein +/- 15 Bedside Urine Urobilinogen +/- 1mg Bedside Urine Nitrite + Positive Bedside Urine Leukocytes ++ 125 Esterase Imaging Data MRCP: Radiologist's Impression: [place] [address] Magnetic Resonance Report Signed Patient: Karina Sepulveda MR#: [id number] : 1980 Acct:[id number] Age/Sex: 42 / F Date of Service: 09/14/22 Loc: ED Accession Number: [id number] ?? Procedure: MR abdomen wo/w con Ordering Provider: Beau Mcneil D.O. PROCEDURE:? MR ABDOMEN WO/W CON ? INDICATIONS:? eval for CBD stone ? TECHNIQUE:? Coronal HASTE, axial 2D FLASH in- and [id number]; axial breath-hold T2 FSE.? Dynamic axial VIBE during the administration of contrast; post-contrast coronal VIBE or 2D FLASH with fat saturation from the hepatic dome to the iliac crests.? Optional diffusion weighted imaging and ADC may be performed.? ? COMPARISON:? None. ? FINDINGS:? Image quality:? Good ? Lower chest:? No basal consolidations.? Lungs are not well evaluated on MRI.? No pleural effusions identified.? No hiatal hernia ? Solid organs:? There is significant hepatic steatosis.? In segment 7, there is a hypervascular lesion measuring 9 millimeters, with retention of contrast in the delayed phase.? T2 signal is high, favoring hemangioma. ? Hepatomegaly. ? Gallbladder mucosal hyperemia and suspected sludge versus tiny stones.? Mild pericholecystic edema.? No pathologic dilation of the pancreatic duct or biliary system.? No definite filling defect in the CBD.? Spleen is normal size.? No adrenal nodules.? No hydronephrosis. ? Vessels and lymph nodes:? Prominent upper abdominal lymph nodes are commonly seen in the setting of chronic liver disease.? No pathologic lymphadenopathy by size criteria elsewhere.? No abdominal aortic aneurysm. ? Bowel and peritoneum:? No pathologic ascites.? No bowel obstruction. ? Body wall:? Unremarkable ? Bones:? No acute or suspicious osseous finding.? There are degenerative changes. ? ? ? IMPRESSION:? Hepatomegaly and significant steatosis. ? Mild inflammatory changes of the gallbladder, possibly reactive secondary to hepatitis.? There is gallbladder sludge versus tiny stones.? Correlate with LFTs. ? CBD is nondilated.? No definite filling defect or mass forming tumor. ? Other incidental findings above. ? ? ? Dictated by: Pipe Montes M.D. on 09/14/2022 at 11:24 ? ? Approved by: Pipe Montes M.D. on 09/14/2022 at 11:33?? [facility] Narrative Medical decision making narrative: I was able to obtain the CT report from her emergency department visit at [facility]. CT was dated 09/02/2022 It showed hepatomegaly with moderate diffuse hepatic steatosis. Small 8 mm isodense nodule in the right hepatic lobe likely representing focal fatty sparing versus small nodule. Cholelithiasis without CT evidence of acute cholecystitis Patient is jaundiced today. She has a significant elevation in her LFTs and bilirubin however her lipase is unremarkable. She is no leukocytosis. Is hypokalemic. She was given IV potassium for this. Right upper quadrant ultrasound during this visit again shows cholelithiasis without acute cholecystitis. CT scan from 2 weeks ago did not show any pancreatic masses. I feel that we can hold on repeat CT scan today. Given the patient's presentation in the jaundice in her lab abnormalities patient does require a MRCP for further evaluation of potential common bile duct stone. I do not have this available at this time in the emergency department but will be available in the morning. Repeat labs were ordered. MRCP ordered. Care turned over to Dr. Mcelroy to follow-up on MRCP and disposition. I did discuss all this with the patient. She expressed understanding and agreement. Patient does have a nitrite positive urine but does not have specific UTI like symptoms. She does express dark-colored urine. The ventral hernia is causing minimal discomfort today. 09/14/22 Navi: Patient signed out to myself by Dr. Mcneil. Patient seen and evaluated by myself. Patient notes she has had some nausea and vomiting recently, no fevers, she is had some very mild discomfort epigastrically. Denies any other symptoms. She does note she drinks quite a bit of alcohol. She is had withdrawals in the past but does not have any active withdrawal symptoms currently. Patient had ultrasound has gallstone without evidence of cholecystitis jaundiced, bilirubin was 17 with AST ALT 470 alk phos 347- lipase. Patient was found to be hypokalemic last night was replaced with 40 mEq, patient does appear to have chronic anemia based on labs, coags are negative. Patient has hepatitis panel pending. ETOH was 27, Tylenol level was less than 10. Patient does admit to alcohol use which may be a component her changes today. Patient did have abdominal CT on September 01 which showed some hepatomegaly, hepatic steatosis as some small focus of fatty focal sparing versus isodense lesion. MRCP was ordered and patient is awaiting. Patient's potassium has been corrected, patient's bilirubin 15.7 LFTs are still elevated but trend slightly down words, night lipase is negative. MRI report shows Consultation with gastroenterology, [facility]. Reviewed patient's labs, findings examination. Agrees likely alcoholic hepatitis does agree with plan for hepatitis panel which is pending. Reviewed MELD score is 22, discriminant function was calculated he states it is quite low would not recommend steroids at this time if patient is not encephalopathic which she is not tolerating orals could have outpatient follow-up. If not tolerating orals or has other issues does not require transfer, would not recommend steroids but would get liver panel and have patient follow up with Gastroenterology long-term does recommend high-protein diet, abstinence from alcohol. Long discussion with patient she elects to discharge home. She is alert, appropriate, she is been tolerating lunch here as well as fluids throughout the morning. Patient and I did discuss potential for withdrawal she was given a dose of phenobarb which he found very helpful. She is open to having a prescription for Librium for home. She does not wish for inpatient or PATIENT SERVICES COORDINATOR evaluation here for outpatient detox. Patient and I discussed MELD score and importance for follow-up, abstinence, high-protein diet, signs and symptoms to watch for and reasons to return her significant other bedside is also part of this conversation. Patient was encouraged to return any time if worsening symptoms or new concerns or if she would like to seek additional help with alcohol cessation. Discharge Plan Departure Patient Disposition: Home Clinical Impression: Ventral hernia, Hypokalemia, Hepatitis Instructions: Alcohol Withdrawal, DI for Acute Liver Failure Activity Restrictions/Additional Instructions: Follow-up with Gastroenterology, contact information is included but you may need referral from primary care. You can reach out to [phone] for the gastroenterology and liver disease clinic in [place]. Please call to follow up with your primary care so they can help follow up with you and continue to monitor your labs regularly. The dental technician metal does recommend high-protein diet. It is important to stop drinking alcohol, prescription for Librium to help with alcohol withdrawals included. This medication can make you sleepy, do not drive, perform hazardous activities or make any major decisions while taking this medication. Do not take this medication if you are continuing to drink alcohol. Prescription sent to [facility] in [place]. Please return for new or worsening abdominal pain, persistent vomiting, confusion or altered mental status, new chest pain or shortness of breath, increasing swelling in your abdomen, alcohol withdrawal, seizures, uncontrolled shaking, hallucinations or other new or concerning changes. Prescriptions: New chlordiazepoxide HCl 25 mg capsule See Rx Instructions .ROUTE .COMPLEX Qty: 19 0RF Rx Instructions: Take 2 tablets every 6 hours times 24 hours, then 1 tablet every 6 hours times 24 hours, then 1 tablet every 8 hours times 24 hours, then 1 tablet every 12 hours times 24 hours then 1 tablet q.h.s. x2 days. No Action amlodipine 10 mg tablet 10 mg PO DAILY Referrals: Nu Horner ARNP [Primary Care Provider] - Stand Alone Forms: Patient Portal/API
[2022-09-13 20:31] LABS: pH Urine UA 7.5 (4.5-8.0)
[2022-09-13 20:32] LABS: Bacteria Urine Occasional (0-1); Culture Indicated Urine Specimen Cultured; RBC Urine None Seen (0-5/HPF); Squamous Epithelial Cell Urine 1-5 /HPF (0-5/HPF); WBC Urine 5-10/HPF (0-5/HPF)
[2022-09-13 20:34] LABS: Ictotest Urine Positive (Negative)
[2022-09-13 20:39] LABS: Pregnancy Test Urine Negative (Negative)
[2022-09-13 20:43] LABS: Acetaminophen < 10 ug/mL (10-30); Ethanol (ETOH) 27 mg/dL
[2022-09-13] MEDS: POTASSIUM CHLORIDE IN WATER 10 MEQ/100 ML PIGGYBACK 100 MEQ IV ×4 (20:43→23:52)
[2022-09-13] MEDS: SODIUM CHLORIDE 0.9% 1,000 ML 125 ML IV (20:44)
[2022-09-14] VITALS (13 sets, daily range): BP systolic 107–124; BP diastolic 65–79; PULSE 98–109; RESP 15–19; TEMP 36.9; O2SAT 91–100
--- NOTE | 2022-09-14 01:00 | PC.NURSE ---
pt moved to Rm 12, placed on hospital bed, given warm blankets and lights dimmed for comfort to wait for MRCP in am, visitor given reclining chair
--- NOTE | 2022-09-14 03:57 | DI.MRI.S_ITS ---
PROCEDURE: MR ABDOMEN WO/W CON INDICATIONS: eval for CBD stone TECHNIQUE: Coronal HASTE, axial 2D FLASH in- and [id number]; axial breath-hold T2 FSE. Dynamic axial VIBE during the administration of contrast; post-contrast coronal VIBE or 2D FLASH with fat saturation from the hepatic dome to the iliac crests. Optional diffusion weighted imaging and ADC may be performed. COMPARISON: None. FINDINGS: Image quality: Good Lower chest: No basal consolidations. Lungs are not well evaluated on MRI. No pleural effusions identified. No hiatal hernia Solid organs: There is significant hepatic steatosis. In segment 7, there is a hypervascular lesion measuring 9 millimeters, with retention of contrast in the delayed phase. T2 signal is high, favoring hemangioma. Hepatomegaly. Gallbladder mucosal hyperemia and suspected sludge versus tiny stones. Mild pericholecystic edema. No pathologic dilation of the pancreatic duct or biliary system. No definite filling defect in the CBD. Spleen is normal size. No adrenal nodules. No hydronephrosis. Vessels and lymph nodes: Prominent upper abdominal lymph nodes are commonly seen in the setting of chronic liver disease. No pathologic lymphadenopathy by size criteria elsewhere. No abdominal aortic aneurysm. Bowel and peritoneum: No pathologic ascites. No bowel obstruction. Body wall: Unremarkable Bones: No acute or suspicious osseous finding. There are degenerative changes. IMPRESSION: Hepatomegaly and significant steatosis. Mild inflammatory changes of the gallbladder, possibly reactive secondary to hepatitis. There is gallbladder sludge versus tiny stones. Correlate with LFTs. CBD is nondilated. No definite filling defect or mass forming tumor. Other incidental findings above. Dictated by: Pipe Montes M.D. on 09/14/2022 at 11:24 Approved by: Pipe Montes M.D. on 09/14/2022 at 11:33
[2022-09-14] MEDS: SODIUM CHLORIDE 0.9% 1,000 ML 125 ML IV ×2 (04:04→12:37)
[2022-09-14 07:02] LABS: Basophils Absolute Auto 0 /uL (0-100); Eosinophils Absolute Auto 100 /uL (0-450); Eosinophils Percent Auto 1.5 % (2-4); Hematocrit 28.9 % (36-46); Lymphocytes Absolute Auto 700 /uL (1100-4500); Lymphocytes Percent Auto 15.2 % (25-40); Mean Corpuscular HGB Conc 34.7 % (30-36); Mean Corpuscular Hemoglobin 39.5 PG (26-34); Mean Corpuscular Volume 113.7 fL (80-100); Monocytes Absolute Auto 600 /uL (0-900); Monocytes Percent Auto 13.3 % (3-14); Neutrophils Absolute Auto 3200 /uL (1500-7000); Platelet Count 127 X10^3/uL (150-400); Red Blood Cell Count 2.54 X10^6/uL (4.0-5.2); Red Cell Distribution Width 15.6 % (11.6-14.8); White Blood Cell Count 4.7 X10^3/uL (4.5-11.0)
[2022-09-14 07:03] LABS: Add Manual Diff / Slide Review SLIDE REVIEW
[2022-09-14 07:05] LABS: Macrocytosis 2+; Target Cells 2+
--- NOTE | 2022-09-14 07:30 | PC.NURSE ---
This RNs first interaction with patient. Ambulates to restroom with steady gait. In no apparent distress. AOx4.
[2022-09-14 08:29] LABS: Alanine Aminotransferase 61 IU/L (<35); Albumin Globulin Ratio 0.7 (1.0-2.8); Alkaline Phosphatase 287 U/L (38-126); Aspartate Aminotransferase 351 IU/L (14-36); BUN Creatinine Ratio 3.3 (6-22); Bilirubin Total 15.7 mg/dL (0.2-1.3); Bilirubin Unconjugated 1.5 mg/dL (0.0-1.1); Blood Urea Nitrogen 2 mg/dL (7-17); Calcium 7.2 mg/dL (8.4-10.2); Carbon Dioxide 29 mmol/L (22-32); Chloride 92 mmol/L (98-107); Estimated Glomerular Filt Rate > 60 mL/min (>60); Globulin 4.1 g/dL (1.7-4.1); Glucose 100 mg/dL (70-100); HEMOLYSIS < 15 (0-50); Lipase 241 U/L (23-300); Potassium 3.5 mmol/L (3.4-5.1); Sodium 131 mmol/L (137-145); Total Protein 7.1 g/dL (6.3-8.2)
[2022-09-14] MEDS: LORazepam 2 MG/ML INJ 0.5 MG IV (09:22)
[2022-09-14] MEDS: IBUPROFEN 400 MG TABLET 800 MG PO (09:23)
--- NOTE | 2022-09-14 12:54 | PC.NURSE ---
Pt states she drinks 4 large glasses of vodka mixed with juice daily, typically a 5th of vodka every day. CLARISSA 8.
[2022-09-14] MEDS: PHENobarbital 65 MG/ML VIAL 130 MG IV (13:28)
--- NOTE | 2022-09-14 13:40 | PC.NURSE ---
Pt states she has tried on her own to reduce ETOH and has been unsuccessful. Offered HOTEL ATTENDANT consult to pt and she declined at this time.
[2022-09-15 02:38] LABS: HBsAg Screen Negative (Negative); Hepatitis A Antibody IgM Negative (Negative); Hepatitis B Core Antibody IgM Negative (Negative); Hepatitis C Antibody Non Reactive (Non Reactive)
== END 2022-09-14 15:25 | disposition home or self-care (01) ==
PROVIDERS: Emergency Medicine; Emergency Provider Emergency Medicine; PCP Nurse Practitioner
DX: K43.9 Ventral hernia without obstruction or gangrene (principal); E87.6 Hypokalemia; K75.9 Inflammatory liver disease, unspecified
CPT/HCPCS: 36415; 74183; 76705; 80048; 80053; 80074; 80076; 80320; 80329; 81001; 81003; 81025; 83690; 85025; 87086; 93005; 96365; 96366; 96375; 99284; A9579; G0480; J2060; J2560